=== PATIENT | female | born 1955 | race Caucasian/White ===

== ENCOUNTER 2021-09-24 06:09 | Inpatient (IN) | payer MEDICARE, OTHER ==
[~2021-09-24] VITALS: Ht 162.6 cm; Wt 51.3 kg
[2021-09-24] VITALS (46 sets, daily range): BP systolic 112–180; BP diastolic 53–117
[2021-09-24] MEDS ORDERED: CARDIZEM IV STA ×3 (06:26→08:04)
[2021-09-24] MEDS ORDERED: MAGNESIUM SULFATE 50 ML IV ONE ×2 (06:30→06:41)
--- NOTE | 2021-09-24 06:32 | PCM.EKG ---
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
[2021-09-24 06:40] LABS: BASOPHIL # 0.1 10^3/uL (0.0-0.1); BASOPHIL % 0.5 % (0.0-0.2); EOSINOPHIL % 0.3 % (0.0-5.0); LYMPHOCYTES # 2.72 10^3/uL1 (1.0-4.8); LYMPHOCYTES % 23.3 % (24.0-44.0); MEAN CORP HGB 33.8 pg (26-34); MONOCYTES # 1.1 10^3/uL (0.3-0.8); MONOCYTES % 9.2 % (5.0-12.0); NEUTROPHIL # 7.8 10^3/uL (1.8-7.7); NEUTROPHILS % 66.6 % (41.0-85.0); PLATELET COUNT 300 10^3/uL (150-400); RED CELL DISTRIBUTION WIDTH 12.3 % (11.5-14.5)
[2021-09-24] MEDS ORDERED: CARDIZEM ONE (06:42)
[2021-09-24] MEDS ORDERED: CARDIZEM IV ONE (06:42)
--- NOTE | 2021-09-24 06:42 | ER.PDOC ---
General Chief Complaint: Chest Pain-Cardiac Nature Stated Complaint: CHEST PAIN Time seen by MD: 06:25 Source: patient Exam Limitations: no limitations History of Present Illness Initial Comments This is a 66-year-old female with a past history of hypertension and peptic ulcer disease who was awakened from sleep about 4 hours ago by a sensation of palpitations, rapid heart rate, chest heaviness, dyspnea and fatigue. She denies a past history of similar episodes. She was also diaphoretic. There was no syncope. Heart rate on presentation was approximately 160. She took an aspirin prior to arrival. 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), hypertension, peptic ulcer disease Surgical History: appendectomy, breast augmentation, cholecystectomy, other (Partial gastrectomy for bleeding ulcer) Social History Smoking: non-smoker Alcohol Use: none Drug Use: none Constitutional: denies chills, denies fever EENTM: denies eye pain, denies ear pain Respiratory: denies cough; shortness of breath Cardiovascular: chest pain; denies edema, denies syncope Gastrointestinal: denies abdominal pain; nausea (Chronic, recurrent); denies vomiting Genitourinary: denies dysuria, denies hematuria Musculoskeletal: denies back pain, denies joint swelling Skin: denies lesions, denies rash Psychiatric/Neurological: denies emotional problems Endocrine: denies increased thrist, denies increased urine Hematologic/Lymphatic: denies blood clots, denies easy bleeding Physical Exam General Appearance: No Apparent Distress, Anxious HEENT: PERRL/EOMI, Normal ENT Inspection, Pharynx Normal Neck: Supple, Normal Inspection Respiratory: lungs clear, normal breath sounds, no respiratory distress, no accessory muscle use Cardiovascular: No Edema, No JVD, No Murmur, Tachycardia, Irregularly Irregular Gastrointestinal: Normal Bowel Sounds, Non Tender Extremities: Normal Range of Motion, Non-Tender, Normal Inspection, No Pedal Edema, No Calf Tenderness, Normal Capillary Refill Neurologic/Psychiatric: 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 (09/24/21 06:26) Xr Chest 1v (09/24/21 06:26) Ekg-Routine (09/24/21:26) Saline Lock (09/24/21 06:26) Troponin I High Sensitivity (09/24/21 06:26) Covid19 Antigen Antonina Venita (09/24/21 06:26) Diltiazem Hcl (Cardizem) (09/24/21:26) Magnesium 2 Gm/Water 50ml (Magnesium Sul (09/24/21 06:30) Magnesium (09/24/21 06:26) Vital Signs Date Time Temp Pulse Resp B/P (MAP) Pulse Ox O2 Delivery O2 Flow Rate FiO2 09/24/21 06:26 98.2 152 20 97 09/24/21 06:26 98.2 152 20 09/24/21 06:26 98.2 152 20 167/117 (134) 97 Room Air Progress Progress Signed out to Dr. Mendoza at 0700. Sign out accepted - Parmjit Miller and would like pt on a Cardizem Drip . Wiill admit at this time to Dr. Ji Jade EKG/XRAY/CT/US EKG: rhythm (A. fib, RVR at 161), nonspecific ST T wave chg ER DEPART Departure Time of Disposition: 07:56 Disposition: 09 ADMITTED INPATIENT Impression: Primary Impression: Atrial fibrillation with RVR Condition: Critical Referrals: MARIPOSA MEJIA MD (PCP) PRIMARY CARE PROVIDER Duration or Time Spent with Pa: 35 min Critical Care Note Total Time (mins): 35 Comments Given the critical condition in which the patient arrived, the patient was immediately assessed by myself and the nurse, and cardiac monitoring initiated due to the potential for rapid decompensation of the patient's clinical condition. During the course of the patient's, I spent a considerable amount of time at the bedside performing serial re-evaluations of the patient's hemodynamic and clinical status because of the recognized potential threat to life or limb in this condition. I then had a chance to review not only all of the available current laboratory and radiographic studies obtained today, Sequential vital signs were obtained. Critical Care time of 35 minutes was performed exclusive of billable procedures NAVIN PINA MD Sep 24, 2021 06:41 ABRAHAM BRIGGS DO Sep 24, 2021 07:28
[2021-09-24] MEDS ORDERED: NS 100ML 100 ML IV ONE (06:44)
--- NOTE | 2021-09-24 06:50 | DIREP ---
PROCEDURE:CHEST 1 VIEW COMPARISON:None. INDICATIONS:chest pain, A Fib FINDINGS: LUNGS/PLEURA:No significant pulmonary parenchymal abnormalities. No effusions. VASCULATURE:Normal. Unremarkable pulmonary vasculature. CARDIAC:Normal. No cardiac silhouette abnormality or cardiomegaly. MEDIASTINUM:Mildly calcified aorta. BONES:Mild degenerative changes. OTHER:Negative. CONCLUSION:No acute pulmonary process. Dictated by: Ravni Collado M.D. on 09/24/2021 at 06:49 AM
[2021-09-24 07:02] LABS: CARBON DIOXIDE 23.4 mmol/L (20.0-32)
[2021-09-24] MEDS ORDERED: CARDIZEM 125 MG in NS 100ML 100 ML IV SCH (07:30)
--- NOTE | 2021-09-24 07:40 | NUR ---
WALLY BRIGGS SPEAKING ON THE PHONE WITH HOSPITALIST, DR. LO REGARDING ADMISSION. ACCEPTED PATIENT FOR ADMITTING DX OF AFIB RVR.
--- NOTE | 2021-09-24 07:50 | NUR ---
ICU ICU #3 ASSIGNED.
--- NOTE | 2021-09-24 08:25 | NUR ---
ARRIVAL PT ARRIVED TO ICU3 AT THIS TIME. PT TRANSFERRED FROM STRETCHER TO BED INDEPENDENTLY. PT DENIES ANY CHEST PAIN AT THIS TIME. PT FLAKE OR SHRED ROLL OPERATOR SHOWS AFIB 132. CARDIZEM INFUSING AT 10MG/HR PER PROTOCOL FROM ED. MAGNESIUM 2GM INFUSING FROM ED WELL. REPORT RECEIVED FROM RENZO MATTHEWS AND ASSUMED CARE OF PT. PT HOOKED UP TO ALL MONITORS. PT EDUCATED TO ICU UNIT. STATES UNDERSTANDING.
--- NOTE | 2021-09-24 08:45 | NUR ---
PT ADMITTED TO ICU, NO RESP DISTRESS NOTED. HR 120, RR 20, SAT 96% ON RA. PT AWAKE AND ALERT, DENIES SOB. Addendum: 09/24/21 at 0903 by HATTIE LAIRD, DIE SINKER RT Amended: Links added.
[2021-09-24] MEDS ORDERED: OXYB5TAB10 PO (10:30)
[2021-09-24] MEDS ORDERED: LOSA50TA2 PO (10:30)
[2021-09-24] MEDS ORDERED: ONDA8TAB16 PO (10:30)
[2021-09-24] MEDS ORDERED: ZOLPIDEM (10:30)
[2021-09-24] MEDS ORDERED: ZOLP10TA PO (10:30)
--- NOTE | 2021-09-24 10:30 | NUR ---
DR. BRET QUEEN NOTIFIED OF CARDIAC CONVERSION. NO NEW ORDERS RECEIVED AT THIS TIME.
[2021-09-24] MEDS ORDERED: ROSU20TA2 PO (10:34)
[2021-09-24] MEDS ORDERED: LEVO100T PO (10:34)
[2021-09-24] MEDS ORDERED: PANT40TA3 PO (10:34)
--- NOTE | 2021-09-24 11:01 | PCM.HP ---
History of Present Illness Reason for Visit: Palpitations History of Present Illness 66-year-old female with a past history of hypertension, Hypothyroidism on levothyroxine,Esophageal cancer and peptic ulcer disease who was awakened from sleep about 4 hours Prior to arrival to the emergency room by a sensation of palpitations, rapid heart rate, chest heaviness, dyspnea and fatigue. She denies a past history of similar episodes. She was also diaphoretic. There was no syncope. Heart rate on presentation was approximately 160. She took an aspirin prior to arrival. Work-up in the emergency room patient was in A. fib with RVR. Was given diltiazem and placed on diltiazem drip. Online User Experience Strategist consulted.I checked a TSH which was low.Patient is being admitted to hospital for further management. Past Medical History Cardiac: HTN Heme/Onc: Cancer Endocrine: Hyperthyroidism Past Surgical History: No pertinent hx Past Social History Smoke: No Alcohol: none Review of Systems Constitutional: No: Fever, Chills Cardiovascular: Palpitations Gastrointestinal: No: Nausea, Vomiting Other Review of 14 systems negative except was mentioned above. Allergies: Coded Allergies: Sulfa (Sulfonamide Antibiotics) (Verified Allergy, Unknown, 09/24/21) metoclopramide (Verified Allergy, Unknown, 09/24/21) Scheduled Levothyroxine Sodium (Synthroid), 1 TAB PO DAILY, (Reported) Losartan Potassium (Cozaar), 1 TAB PO QD, (Reported) Ondansetron (Ondansetron Odt), 8 MG PO Q8HR, (Reported) Oxybutynin Chloride (Oxybutynin Chloride), 1 TAB PO TID, (Reported) Pantoprazole Sodium (Protonix), 1 TAB PO DAILY, (Reported) Rosuvastatin 20MG (Crestor 20MG), 1 TAB PO HS, (Reported) Zolpidem Tartrate (Ambien), 10 MG PO HS, (Reported) Miscellaneous Medications [Zolpidem], (Reported) Exam Vital Signs Vital Signs Date Time Temp Pulse Resp B/P (MAP) Pulse Ox O2 Delivery O2 Flow Rate FiO2 135 20 131/70 (90) 94 Room Air 97.9 General Appearance: Alert, Oriented X3 HEENT: Atraumatic, PERRLA Respiratory: Clear to auscultation, Normal air movement Cardiovascular: Other (Irregular irregular tachycardic) Abdominal: Normal bowel sounds, Soft, No tenderness Extremities: No clubbing, No cyanosis Skin: No lesions Neuro: Normal speech, Normal tone Psych/Mental Status: Mental status NL, Mood NL Assessment/Plan Assessment/Plan Assessment/Plan 66-year-old female with a past history of hypertension, Hypothyroidism on levothyroxine,Esophageal cancer and peptic ulcer disease who was awakened from sleep about 4 hours Prior to arrival to the emergency room by a sensation of palpitations, rapid heart rate, chest heaviness, dyspnea and fatigue. She denies a past history of similar episodes. She was also diaphoretic. There was no syncope. Heart rate on presentation was approximately 160. She took an aspirin prior to arrival. Work-up in the emergency room patient was in A. fib with RVR. Was given diltiaze m and placed on diltiazem drip. Online User Experience Strategist consulted.I checked a TSH which was low.Patient is being admitted to hospital for further management Plan Admit to ICU IV diltiazem drip TSH is low, will hold levothyroxine Replace electrolytes 2D echo Online User Experience Strategist consulted for evaluation and further management DVT prophylaxis as appropriate Reconcile home meds Expect length of stay more than 1 midnight Problems: (1) Atrial fibrillation with RVR Status: Acute ICD Code: I48.91 - Unspecified atrial fibrillation SNOMED: 383924289500225 (2) Hypomagnesemia ICD Code: E83.42 - Hypomagnesemia SNOMED: 475053659 (3) Hypertension ICD Code: I10 - Essential (primary) hypertension SNOMED: 90821089 (4) Thyroid disease ICD Code: E07.9 - Disorder of thyroid, unspecified SNOMED: 04066158 (5) History of esophageal cancer ICD Code: Z85.01 - Personal history of malignant neoplasm of esophagus SNOMED: 611467546 TAIWO DIAS MD Sep 24, 2021 11:01
[2021-09-24] MEDS ORDERED: CITA20TA6 PO (11:23)
[2021-09-24] MEDS ORDERED: SUCR1TAB34 PO (11:23)
[2021-09-24] MEDS ORDERED: CYCL10TA19 PO (11:23)
[2021-09-24] MEDS ORDERED: SERT100T PO (11:23)
[2021-09-24] MEDS ORDERED: PROM12.57 PO (11:23)
[2021-09-24] MEDS: COZAAR PO SCH ×2 (11:29→13:10)
[2021-09-24] MEDS: CARAFATE PO SCH ×2 (12:02→16:55)
[2021-09-24] MEDS: LOPRESSER PO SCH ×2 (12:03→16:55)
[2021-09-24] MEDS: KLOR-CON 10 PO SCH ×2 (13:10→13:15)
[2021-09-24] MEDS ORDERED: KCL 20MEQ/100ML 100 ML IV ONE ×2 (13:15→13:30)
[2021-09-24] MEDS ORDERED: ZOFRAN ONE (13:15)
--- NOTE | 2021-09-24 13:15 | NUR ---
VOMITING PT VOMITED AFTER ADMINISTRATIONS OF POTASSIUM AND LOSARTAN. DR MARAVILLA NOTIFIED. ORDERS RECEIVED TO GIVE KCL 20MEQ IV, ZOFRAN 4MG IVP, AND TRY LOSARTAN AGAIN AFTER ZOFRAN KICKS IN. RBTO.
[2021-09-24] MEDS: ZOFRAN IV PRN ×3 (13:18→21:00)
[2021-09-24] MEDS ORDERED: NS 250ML 250 ML ONE ×2 (13:24→15:22)
--- NOTE | 2021-09-24 13:48 | PCM.EKG ---
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
--- NOTE | 2021-09-24 13:57 | PCM.EKG ---
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
[2021-09-24] MEDS: DITROPAN PO SCH ×2 (14:19→20:33)
--- NOTE | 2021-09-24 14:20 | NUR ---
LIU GANNON D/C AT THIS TIME PER DR TAIWO RIVAS.
--- NOTE | 2021-09-24 18:34 | NUR ---
REPORT REPORT GIV[facility] TO [facility]IERREZ [facility]
[2021-09-24] MEDS ORDERED: CRESTOR PO ONE (20:27)
[2021-09-24] MEDS ORDERED: AMBIEN ONE (20:38)
[2021-09-24] MEDS ORDERED: CRESTOR PO SCH (21:00)
[2021-09-24] MEDS ORDERED: AMBIEN PO SCH (21:00)
[2021-09-25] VITALS (24 sets, daily range): BP systolic 102–150; BP diastolic 51–103
--- NOTE | 2021-09-25 03:19 | CNH ---
DATE OF CONSULTATION: 09/24/2021 DICTATOR NAME: FER QUEEN DO REASON FOR CONSULTATION: Atrial fibrillation with rapid ventricular response/acute decompensated heart failure. HISTORY OF PRESENT ILLNESS: This is a 66-year-old female who presented to the Emergency Room with progressively worsening shortness of breath, paroxysmal nocturnal dyspnea that woke her up from sleep last night, orthopnea and persistent palpitations. She became concerned and reported to the Emergency Room. Upon presentation, EKG showed atrial fibrillation with rapid ventricular response with heart rate in the 160s. She was also noted to have an elevated proBNP at 1335. High sensitive troponin is negative x3. A consultation was placed to Cardiology Service for evaluation for acute decompensated heart failure as well as atrial fibrillation with rapid ventricular response. She was started on diltiazem drip and has since chemically converted to normal sinus rhythm. PAST MEDICAL HISTORY: Significant for: 1. Hypertension. 2. Squamous cell carcinoma of the esophagus. 3. Peptic ulcer disease. 4. Hypothyroidism. 5. Hyperlipidemia. PAST SURGICAL HISTORY: 1. Appendectomy. 2. Breast augmentation. 3. Cholecystectomy. 4. Partial gastrectomy for bleeding ulcer. ALLERGIES: SHE IS ALLERGIC TO: 1. SULFONAMIDE ANTIBIOTICS. 2. CODEINE. 3. REGLAN. MEDICATIONS: She takes at home includes: 1. Levothyroxine. 2. Losartan 100 mg p.o. q. daily. 3. Zofran. 4. Oxybutynin. 5. Protonix. 6. Rosuvastatin 20 mg p.o. at bedtime. 7. Ambien. SOCIAL HISTORY: She denies tobacco use, denies illicit drug use, denies alcohol use. FAMILY HISTORY: She denies any family history of premature coronary artery disease or sudden cardiac . REVIEW OF SYSTEMS: As per HPI and as per previous records. All systems are reviewed and negative for interval change. PHYSICAL EXAMINATION: VITAL SIGNS: Blood pressure is 121/68, respiratory rate is 20, pulse is 74 beats per minute, pulse oximetry 97% on room air. GENERAL: She is in no apparent distress, alert and oriented x3. HEENT: Normocephalic, atraumatic. Extraocular muscles intact. Pupils equally round, reactive to light and accommodation. CARDIAC: S1, S2. No gallops, murmurs, rubs, or clicks. LUNGS: Clear to auscultation bilaterally. No wheezing, rhonchi or rales. ABDOMEN: Soft, nontender, nondistended. Positive bowel sounds in all 4 quadrants. EXTREMITIES: No cyanosis, no clubbing, no edema, +2 pedal pulses palpable bilaterally. NEUROLOGIC: No neurological deficits. Sensation is intact. IMPRESSION: 1. Acute decompensated heart failure secondary to unknown etiology at this time. 2. Elevated proBNP at 1335. 3. Atrial fibrillation with rapid ventricular response -- chemically converted to normal sinus rhythm. 4. CHADS2-VASc score of 4. 5. Hypertension. 6. Hyperlipidemia. 7. Hypothyroidism with low TSH and a suspicion for elevated thyroid hormones at this time. On levothyroxine at home. 9. Gastroesophageal reflux disease. 10. Insomnia. 11. Squamous cell carcinoma of the esophagus. 12. Peptic ulcer disease. RECOMMENDATIONS: This is a 66-year-old female who presented to the Emergency Room with paroxysmal nocturnal dyspnea that woke her up from sleep as well as progressively worsening shortness of breath that she has been experiencing for the last few days and orthopnea. Upon presentation to the ED, EKG showed atrial fibrillation with rapid ventricular response as well as elevated proBNP of 1335. A diagnosis of AFib with decompensated heart failure has been made. I suspect she has been in atrial fibrillation for the last few days that eventually put her in congestive heart failure. She chemically converted back to normal sinus rhythm on diltiazem drip. Diltiazem drip has been discontinued. I am going to start her on metoprolol tartrate 25 mg p.o. b.i.d. for rate control. Given her CHADS2-VASc score of 4, she will be started on Eliquis 5 mg p.o. b.i.d. She also has low TSH with a suspicion for elevated thyroid hormones. This may have also contributed to her atrial fibrillation episode. She has a history of hypothyroidism and takes levothyroxine. Levothyroxine has been discontinued at this time. She would benefit from outpatient full thyroid panel and possibly adjustment of her Levothyroxine medications. I will defer to the hospitalist for management of her thyroid disease. She will be started on Lasix 20 mg p.o. q. daily as well as potassium chloride 10 mEq p.o. q. daily. She takes losartan 50 mg p.o. q. daily at home. I would recommend to continue all cardiac medications. A prescription for oral anticoagulation as well as beta-grace therapy and antidiuretic therapy has been given to the patient together with a prescription for potassium chloride. At this point, she appears to be euvolemic. I would recommend sodium as well as fluid restriction, strict I's and O's as well as daily weights. Eventually, when she gets discharged, she would need to follow up with me in the clinic in the next 2 weeks. She would benefit from outpatient cardiac ischemic workup to rule out an ischemic substrate. At this time, echocardiography is not available at the hospital. She will be set up for echocardiography as well as cardiac stress test in the outpatient setting. She would also benefit from implantation of a CardioMEMS pulmonary artery sensor for remote monitoring of her pulmonary arterial pressures. This will be set up in the outpatient setting. No further cardiovascular workup is necessary at this time. She can be discharged home from my standpoint to follow up with me in the clinic in 2 weeks. I will sign off. Sunita COHEN D.O. DR: KA/CHA TID: [id number] RECEIPT: [id number]
[2021-09-25 05:25] LABS: BASOPHIL # 0.1 10^3/uL (0.0-0.1); BASOPHIL % 0.7 % (0.0-0.2); EOSINOPHIL # 0.1 10^3/uL (0.0-0.2); EOSINOPHIL % 1.3 % (0.0-5.0); LYMPHOCYTES # 2.21 10^3/uL1 (1.0-4.8); LYMPHOCYTES % 32.6 % (24.0-44.0); MEAN CORP HGB 33.4 pg (26-34); MONOCYTES % 14.9 % (5.0-12.0); NEUTROPHIL # 3.4 10^3/uL (1.8-7.7); NEUTROPHILS % 50.4 % (41.0-85.0); PLATELET COUNT 234 10^3/uL (150-400); RED CELL DISTRIBUTION WIDTH 12.3 % (11.5-14.5)
[2021-09-25 05:51] LABS: CARBON DIOXIDE 23.9 mmol/L (20.0-32)
[2021-09-25] MEDS: ZOFRAN IV PRN ×2 (06:34→11:46)
[2021-09-25] MEDS: CARAFATE PO SCH ×2 (07:48→11:46)
[2021-09-25] MEDS ORDERED: NORCO 5MG PO PRN (08:00)
[2021-09-25] MEDS ORDERED: PROTONIX PO SCH (09:00)
[2021-09-25] MEDS ORDERED: ELIQUIS PO SCH (09:00)
[2021-09-25] MEDS ORDERED: LASIX PO SCH (09:00)
[2021-09-25] MEDS ORDERED: KLOR-CON 10 PO SCH (09:00)
[2021-09-25] MEDS ORDERED: LOPRESSER PO SCH (09:00)
[2021-09-25] MEDS: CeleXA PO SCH ×2 (09:20→09:40)
[2021-09-25] MEDS: DITROPAN PO SCH (09:20)
[2021-09-25] MEDS: ZOLOFT PO SCH ×2 (09:20→09:40)
[2021-09-25] MEDS: COZAAR PO SCH (09:20)
[2021-09-25] MEDS ORDERED: FURO20TA3 PO (10:44)
[2021-09-25] MEDS ORDERED: METO25TA4 PO (10:44)
[2021-09-25] MEDS ORDERED: POTA-129 PO (10:44)
[2021-09-25] MEDS ORDERED: APIX5TAB PO (10:44)
--- NOTE | 2021-09-25 10:49 | PRM.PN ---
Subjective Subjective Date: Sep 25, 2021 Time: 10:48 Subjective No chest pain or SOB. VTE VTE Risk Total Score: >5 VTE Risk Score VTE Risk: Score 0-1 = Low Risk (Aggressive mobilization; early ambulation; no VTE prophylaxis required) Score 2: Moderate Risk (Intermittent/Pneumatic Compression Device OR Lovenox/Heparin/Coumadin) Score 3-4: High Risk (Intermittent/Pneumatic Compression Device AND Lovenox/Heparin/Coumadin) Score > or =5: Highest Risk (Intermittent/Pneumatic Compression Device AND Lovenox/Heparin/Coumadin) Antico:Hep/LMWH/Coum/Xarelto: Yes Review of Systems Constitutional: No: Fever, Chills Cardiovascular: Palpitations Gastrointestinal: No: Nausea, Vomiting Allergies: Coded Allergies: Sulfa (Sulfonamide Antibiotics) (Verified Allergy, Unknown, 09/24/21) metoclopramide (Verified Allergy, Unknown, 09/24/21) codeine (Verified Adverse Reaction, Unknown, ITCHING, 09/24/21) Scheduled Apixaban (Eliquis), 5 MG PO BID Citalopram Hydrobromide (Citalopram Hbr), 1 TAB PO DAILY, (Reported) Cyclobenzaprine Hcl (Flexeril), 1 TAB PO BID, (Reported) Furosemide (Furosemide), 20 MG PO DAILY Levothyroxine Sodium (Synthroid), 1 TAB PO DAILY, (Reported) Losartan Potassium (Cozaar), 1 TAB PO QD, (Reported) Metoprolol Tartrate 25MG (Lopresser 25MG), 25 MG PO BID Ondansetron (Ondansetron Odt), 8 MG PO Q8HR, (Reported) Oxybutynin Chloride (Oxybutynin Chloride), 1 TAB PO TID, (Reported) Pantoprazole Sodium (Protonix), 1 TAB PO DAILY, (Reported) Potassium Chloride (Klor-Con 10), 10 MEQ PO DAILY Rosuvastatin 20MG (Crestor 20MG), 1 TAB PO HS, (Reported) Sertraline Hcl (Zoloft), 1 TAB PO DAILY, (Reported) Sucralfate (Carafate), 1 TAB PO TIDAC, (Reported) Zolpidem Tartrate (Ambien), 10 MG PO HS, (Reported) Scheduled PRN Promethazine Hcl (Promethazine Hcl), 1 TAB PO Q6 PRN for N/V, (Reported) Miscellaneous Medications [Zolpidem], (Reported) Objective Vitals and I/O Vital Sign - Last 24 Hours 09/24/21 09/24/21 09/24/21 09/24/21 11:00 11:15 11:17 11:30 Pulse 83 107 120 84 Resp 20 22 20 18 B/P (MAP) 141/66 (91) 149/82 (104) Pulse Ox 94 95 96 95 09/24/21 09/24/21 09/24/21 09/24/21 11:45 12:00 12:03 12:15 Temp 97.8 Pulse 87 81 86 97 Resp 22 B/P (MAP) 149/84 (105) 168/88 (114) 168/88 Pulse Ox 96 95 96 09/24/21 09/24/21 09/24/21 09/24/21 12:17 12:30 12:32 12:36 Pulse 106 83 80 90 Resp 18 23 19 18 B/P (MAP) 166/101 (122) Pulse Ox 95 94 95 96 09/24/21 09/24/21 09/24/21 09/24/21 12:45 12:49 13:09 13:10 Pulse 88 75 Resp 20 29 B/P (MAP) 165/101 (122) 165/103 (123) 165/103 Pulse Ox 96 94 O2 Delivery Room Air 09/24/21 09/24/21 09/24/21 09/24/21 13:15 13:30 13:45 14:00 Pulse 75 74 67 66 Resp 20 22 Pulse Ox 96 95 95 94 09/24/21 09/24/21 09/24/21 09/24/21 14:15 14:20 14:26 14:30 Pulse 67 67 70 69 Resp 24 17 28 B/P (MAP) 162/103 (122) Pulse Ox 95 94 95 09/24/21 09/24/21 09/24/21 09/24/21 14:45 14:47 15:00 15:16 Pulse 73 72 65 74 Resp 20 22 20 26 B/P (MAP) 150/98 (115) 127/69 (88) 147/67 (93) Pulse Ox 94 95 96 09/24/21 09/24/21 09/24/2126/22 15:30 15:45 16:01 16:17 Pulse 70 70 74 77 Resp 25 25 28 26 B/P (MAP) 148/82 (104) 156/81 (106) 127/83 (98) Pulse Ox 93 96 97 92 09/24/21 09/24/21 09/24/21 09/24/21 16:27 16:30 16:45 16:46 Pulse 71 70 85 Resp 32 32 27 B/P (MAP) 140/89 (106) Pulse Ox 97 97 95 O2 Delivery Room Air 09/24/21 09/24/21 09/24/21 09/24/21 16:55 17:00 17:15 17:26 Temp 97.8 Pulse 72 78 77 78 Resp 45 65 90 B/P (MAP) 127/69 172/116 (134) Pulse Ox 97 96 95 09/24/21 09/24/21 09/24/21 09/24/21 18:30 18:31 18:45 19:00 Pulse 71 67 57 67 Resp 25 20 16 18 B/P (MAP) 153/109 (124) 157/78 (104) 171/68 (102) Pulse Ox 97 96 95 95 09/24/21 09/24/21 09/24/21 09/24/21 19:15 19:30 19:45 20:00 Pulse 66 64 55 Resp 11 19 20 B/P (MAP) 142/86 (104) 160/82 (108) 150/82 (104) Pulse Ox 96 97 95 O2 Delivery Room Air 09/24/21 09/24/21 09/24/21 09/24/21 20:00 20:15 20:16 20:30 Pulse 71 68 71 68 Resp 19 84 33 22 B/P (MAP) 148/94 (112) 150/83 (105) 127/53 (77) Pulse Ox 95 97 90 97 09/24/21 09/24/21 09/24/21 09/24/21 20:45 21:00 21:01 21:15 Pulse 90 79 69 73 Resp 39 77 35 48 B/P (MAP) 148/94 (112) Pulse Ox 96 95 96 96 09/24/21 09/24/21 09/24/21 09/24/21 21:30 21:45 22:00 22:15 Pulse 72 72 68 74 Resp 22 20 22 20 B/P (MAP) 167/80 (109) 140/82 (101) Pulse Ox 97 98 94 09/24/21 09/24/21 09/24/21 09/24/21 22:30 22:45 23:00 23:15 Pulse 66 74 65 76 Resp 23 20 22 20 B/P (MAP) 121/68 (85) 121/66 (84) Pulse Ox 95 97 94 09/24/21 09/24/21 09/25/21 09/25/21 23:30 23:45 00:00 00:00 Pulse 71 69 81 Resp 18 19 20 B/P (MAP) 112/72 (85) 149/91 (110) Pulse Ox 94 96 94 O2 Delivery Room Air 09/25/21 09/25/21 09/25/21 09/25/21 00:15 00:30 00:45 01:00 Pulse 95 64 65 71 Resp 18 14 21 19 B/P (MAP) 134/76 (95) 122/55 (77) Pulse Ox 97 96 97 94 09/25/21 09/25/21 09/25/21 09/25/21 01:15 01:30 01:45 02:00 Pulse 76 66 58 61 Resp 10 32 17 17 B/P (MAP) 123/51 (75) 108/65 (79) Pulse Ox 96 94 09/25/21 09/25/21 09/25/21 09/25/21 02:15 02:30 02:45 03:00 Pulse 67 66 66 62 Resp 20 22 20 20 B/P (MAP) 113/71 (85) 102/58 (73) Pulse Ox 95 94 09/25/21 09/25/21 09/25/21 09/25/21 03:15 03:30 03:45 04:00 Pulse 63 67 60 Resp 16 20 21 B/P (MAP) 125/65 (85) Pulse Ox 94 93 95 O2 Delivery Room Air 09/25/21 09/25/21 09/25/21 09/25/21 04:00 04:01 04:15 04:30 Pulse 72 66 69 60 Resp 19 21 14 18 B/P (MAP) 126/68 (87) 118/66 (83) Pulse Ox 94 95 96 09/25/21 09/25/21 09/25/21 09/25/21 04:45 05:00 05:15 05:30 Pulse 60 61 75 70 Resp 21 27 15 18 B/P (MAP) 108/57 (74) 120/74 (89) Pulse Ox 95 95 97 95 09/25/21 09/25/21 09/25/21 09/25/21 05:45 06:00 06:15 06:30 Pulse 65 63 68 63 Resp 16 21 B/P (MAP) 112/68 (83) 103/61 (75) Pulse Ox 97 94 96 95 09/25/21 09/25/21 09/25/21 09/25/21 06:45 07:00 07:15 07:30 Pulse 96 71 72 60 Resp 21 37 24 21 B/P (MAP) 129/68 (88) 123/72 (89) Pulse Ox 95 95 93 95 09/25/21 09/25/21 09/25/21 09/25/21 07:45 08:00 08:15 08:30 Pulse 65 87 64 93 Resp B/P (MAP) 128/78 (95) 134/100 (111) Pulse Ox 93 95 97 94 09/25/21 09/25/21 09/25/21 09/25/21 08:45 08:55 09:19 09:20 Temp 97.7 Pulse 76 Resp 21 B/P (MAP) 126/69 126/69 Pulse Ox 97 O2 Delivery Room Air 09/25/21 09:20 Pulse 65 B/P (MAP) 126/69 Intake and Output 09/25/21 07:00 Intake Total 2653 ml Output Total 200 ml Balance 2453 ml General: Alert, Oriented X3 HEENT: Atraumatic, PERRLA Lungs: Clear to auscultation, Normal air movement Heart: Other (Irregular irregular tachycardic) Abdomen: Normal bowel sounds, Soft, No tenderness Extremities: No clubbing, No cyanosis Neuro: Normal speech, Normal tone Psych/Mental Status: Mental status NL, Mood NL All Results(Lab/Rad) Laboratory Tests Test 09/24/21 12:55 09/25/21 05:10 Troponin I High Sensitivity 31 ng/L White Blood Count 6.8 10^3/uL Red Blood Count 4.25 10^6/uL Hemoglobin 14.2 g/dL Hematocrit 42.6 % Mean Corpuscular Volume 100.2 fL Mean Corpuscular Hemoglobin 33.4 pg Mean Corpuscular Hemoglobin Concent 33.3 g/dL Red Cell Distribution Width 12.3 % Platelet Count 234 10^3/uL Mean Platelet Volume 10.2 fL Neutrophils (%) (Auto) 50.4 % Lymphocytes (%) (Auto) 32.6 % Monocytes (%) (Auto) 14.9 % Neutrophils # (Auto) 3.4 10^3/uL Lymphocytes # (Auto) 2.21 10^3/uL1 Monocytes # (Auto) 1.0 10^3/uL Absolute Immature Granulocyte (auto 0.01 10^3 u/L Absolute Eosinophils (auto) 0.1 10^3/uL Immature Granulocytes % 0.10 % Eosinophils % 1.3 % Basophils % 0.7 % Basophils # 0.1 10^3/uL Sodium Level 139 mmol/L Potassium Level 3.6 mmol/L Chloride Level 104.0 mmol/L Carbon Dioxide Level 23.9 mmol/L Anion Gap 14.7 Blood Urea Nitrogen 6 mg/dL Creatinine 0.66 mg/dL Estimated GFR () 108.8 Est GFR (CKD-EPI)(Non-Afr Omani) 89.9 BUN/Creatinine Ratio 9.0 Glucose Level 105 mg/dL Calcium Level 9.0 mg/dL Total Bilirubin 0.9 mg/dL Aspartate Amino Transf (AST/SGOT) 74 U/L Alanine Aminotransferase (ALT/SGPT) 41 U/L Alkaline Phosphatase 154 U/L Total Protein 6.9 g/dL Albumin 3.4 g/dL Globulin 3.5 Albumin/Globulin Ratio 0.971 Current Medications Medications (Trade) Dose Ordered Sig/Juan Route PRN Reason Start Time Stop Time Status Last Admin Dose Admin Diltiazem HCl (Cardizem) 15 mg STAT STAT IV 09/24/21 06:26 09/24/21 06:31 DC 09/24/21 06:45 Magnesium Sulfate 50 ml @ 50 mls/hr OT ONCE IV 09/24/21 06:30 09/24/21 07:29 DC 09/24/21 06:50 Magnesium Sulfate 50 ml @ ud STK-MED ONCE IV 09/24/21 06:41 09/24/21 06:41 DC Diltiazem HCl (Cardizem) 50 mg STK-MED ONCE IV 09/24/21 06:42 09/24/21 06:42 DC Diltiazem HCl (Cardizem) 125 mg STK-MED ONCE .ROUTE 09/24/21 06:42 09/24/21 06:42 DC Sodium Chloride 100 ml @ ud STK-MED ONCE IV 09/24/21 06:44 09/24/21 06:44 DC Diltiazem HCl (Cardizem) 20 mg STAT STAT IV 09/24/21 06:57 09/24/21 06:58 DC 09/24/21 06:55 Diltiazem HCl 125 mg/Sodium Chloride 125 ml @ 5 mls/hr IV 09/24/21 07:30 09/24/21 23:19 DC 09/24/21 07:37 Diltiazem HCl (Cardizem) 15 mg STAT STAT IV 09/24/21 08:04 09/24/21 08:06 DC 09/24/21 08:08 Potassium Chloride (Klor-Con 10) 20 meq STAT PO 09/24/21 09:00 09/25/21 00:34 DC Metoprolol Tartrate (Lopresser) 25 mg Q6 PO 09/24/21 12:00 09/24/21 23:14 DC 09/24/21 16:55 Losartan Potassium (Cozaar) 50 mg DAILY PO 09/24/21 11:00 10/24/21 10:59 09/25/21 09:20 Pantoprazole Sodium (Protonix) 40 mg DAILY PO 09/25/21 09:00 10/25/21 08:59 09/25/21 09:20 Rosuvastatin Calcium (Crestor) 20 mg HS PO 09/24/21 21:00 10/24/21 20:59 09/24/21 20:32 Zolpidem Tartrate (Ambien) 10 mg HS PO 09/24/21 21:00 10/24/21 20:59 09/24/21 20:40 Citalopram Hydrobromide (CeleXA) 20 mg DAILY PO 09/25/21 09:00 10/25/21 08:59 Oxybutynin Chloride (Ditropan) 5 mg TID PO 09/24/21 15:00 10/24/21 14:59 09/25/21 09:20 Sucralfate (Carafate) 1 gm TIDAC PO 09/24/21 11:30 10/24/21 11:29 09/25/21 07:48 Sertraline HCl (Zoloft) 100 mg DAILY PO 09/25/21 09:00 10/25/21 08:59 Ondansetron HCl (Zofran) 4 mg STK-MED ONCE .ROUTE 09/24/21 13:15 09/24/21 13:15 DC Potassium Chloride 100 ml @ ud STK-MED ONCE IV 09/24/21 13:15 09/24/21 13:15 DC Ondansetron HCl (Zofran) 4 mg Q4H PRN IV NAUSEA / VOMITING 09/24/21 13:30 10/24/21 13:29 09/25/21 06:34 Potassium Chloride 100 ml @ 50 mls/hr OT ONCE IV 09/24/21 13:30 09/24/21 15:30 DC 09/24/21 13:18 Sodium Chloride 250 ml @ ud STK-MED ONCE .ROUTE 09/24/21 13:24 09/24/21 13:25 DC Sodium Chloride 250 ml @ ud STK-MED ONCE .ROUTE 09/24/21 15:22 09/24/21 15:23 DC Rosuvastatin Calcium (Crestor) 10 mg STK-MED ONCE PO 09/24/21 20:27 09/24/21 20:28 DC Zolpidem Tartrate (Ambien) 5 mg STK-MED ONCE .ROUTE 09/24/21 20:38 09/24/21 20:38 DC Metoprolol Tartrate (Lopresser) 25 mg BID PO 09/25/21 09:00 10/25/21 08:59 09/25/21 09:20 Furosemide (Lasix) 20 mg DAILY PO 09/25/21 09:00 10/25/21 08:59 09/25/21 09:19 Potassium Chloride (Klor-Con 10) 10 meq DAILY PO 09/25/21 09:00 10/25/21 08:59 09/25/21 09:21 Acetaminophen/ Hydrocodone Bitart ([place] 5mg) 1 ea Q4HR PRN PO PAIN 4 - 6 09/25/21 08:00 10/25/21 07:59 09/25/21 07:49 Course Sepsis Screening Results: Posi: NEGATIVE Sepsis Qualifier/Stage: NO DEFINITE RISK DATE SEEN BY PHYSICIAN: Sep 25, 2021 Duration or Total Time Spent w: 35 min Vitals & review Data Vital Sign - Last 24 Hours 09/24/21 09/24/21 09/24/21 09/24/21 11:00 11:15 11:17 11:30 Pulse 83 107 120 84 Resp 20 22 20 18 B/P (MAP) 141/66 (91) 149/82 (104) Pulse Ox 94 95 96 95 09/24/21 09/24/21 09/24/21 09/24/21 11:45 12:00 12:03 12:15 Temp 97.8 Pulse 87 81 86 97 Resp 16 22 B/P (MAP) 149/84 (105) 168/88 (114) 168/88 Pulse Ox 96 95 96 09/24/21 09/24/21 09/24/21 09/24/21 12:17 12:30 12:32 12:36 Pulse 106 83 80 90 Resp 18 23 19 18 B/P (MAP) 166/101 (122) Pulse Ox 95 94 95 96 09/24/21 09/24/21 09/24/21 09/24/21 12:45 12:49 13:09 13:10 Pulse 88 75 Resp 20 29 B/P (MAP) 165/101 (122) 165/103 (123) 165/103 Pulse Ox 96 94 O2 Delivery Room Air 09/24/21 09/24/21 09/24/21 09/24/21 13:15 13:30 13:45 14:00 Pulse 75 74 67 66 Resp 20 22 Pulse Ox 96 95 95 94 09/24/21 09/24/21 09/24/21 09/24/21 14:15 14:20 14:26 14:30 Pulse 67 67 70 69 Resp 24 17 28 B/P (MAP) 162/103 (122) Pulse Ox 95 94 95 09/24/21 09/24/21 09/24/21 09/24/21 14:45 14:47 15:00 15:16 Pulse 73 72 65 74 Resp 20 22 20 26 B/P (MAP) 150/98 (115) 127/69 (88) 147/67 (93) Pulse Ox 94 95 96 3/26/22 3/26/22 3/26/22 3/26/22 15:30 15:45 16:01 16:17 Pulse 70 70 74 77 Resp 25 25 28 26 B/P (MAP) 148/82 (104) 156/81 (106) 127/83 (98) Pulse Ox 93 96 97 92 09/24/21 09/24/21 09/24/21 09/24/21 16:27 16:30 16:45 16:46 Pulse 71 70 85 Resp 32 32 27 B/P (MAP) 140/89 (106) Pulse Ox 97 97 95 O2 Delivery Room Air 09/24/21 09/24/21 09/24/21 09/24/21 16:55 17:00 17:15 17:26 Temp 97.8 Pulse 72 78 77 78 Resp 45 65 90 B/P (MAP) 127/69 172/116 (134) Pulse Ox 97 96 95 09/24/21 09/24/21 09/24/21 09/24/21 18:30 18:31 18:45 19:00 Pulse 71 67 57 67 Resp 25 20 16 18 B/P (MAP) 153/109 (124) 157/78 (104) 171/68 (102) Pulse Ox 97 96 95 95 09/24/21 09/24/21 09/24/21 09/24/21 19:15 19:30 19:45 20:00 Pulse 66 64 55 Resp 11 19 20 B/P (MAP) 142/86 (104) 160/82 (108) 150/82 (104) Pulse Ox 96 97 95 O2 Delivery Room Air 09/24/21 09/24/21 09/24/21 09/24/21 20:00 20:15 20:16 20:30 Pulse 71 68 71 68 Resp 19 84 33 22 B/P (MAP) 148/94 (112) 150/83 (105) 127/53 (77) Pulse Ox 95 97 90 97 09/24/21 09/24/21 09/24/21 09/24/21 20:45 21:00 21:01 21:15 Pulse 90 79 69 73 Resp 39 77 35 48 B/P (MAP) 148/94 (112) Pulse Ox 96 95 96 96 09/24/21 09/24/21 09/24/21 09/24/21 21:30 21:45 22:00 22:15 Pulse 72 72 68 74 Resp 22 20 22 20 B/P (MAP) 167/80 (109) 140/82 (101) Pulse Ox 97 98 94 09/24/21 09/24/21 09/24/21 09/24/21 22:30 22:45 23:00 23:15 Pulse 66 74 65 76 Resp 23 20 22 20 B/P (MAP) 121/68 (85) 121/66 (84) Pulse Ox 95 97 94 09/24/21 09/24/21 09/25/21 09/25/21 23:30 23:45 00:00 00:00 Pulse 71 69 81 Resp 18 19 20 B/P (MAP) 112/72 (85) 149/91 (110) Pulse Ox 94 96 94 O2 Delivery Room Air 09/25/21 09/25/21 09/25/21 09/25/21 00:15 00:30 00:45 01:00 Pulse 95 64 65 71 Resp 18 14 21 19 B/P (MAP) 134/76 (95) 122/55 (77) Pulse Ox 97 96 97 94 09/25/21 09/25/21 09/25/21 09/25/21 01:15 01:30 01:45 02:00 Pulse 76 66 58 61 Resp 10 32 17 17 B/P (MAP) 123/51 (75) 108/65 (79) Pulse Ox 96 94 09/25/21 09/25/21 09/25/21 09/25/21 02:15 02:30 02:45 03:00 Pulse 67 66 66 62 Resp 20 22 20 20 B/P (MAP) 113/71 (85) 102/58 (73) Pulse Ox 95 94 09/25/21 09/25/21 09/25/21 09/25/21 03:15 03:30 03:45 04:00 Pulse 63 67 60 Resp 16 20 21 B/P (MAP) 125/65 (85) Pulse Ox 94 93 95 O2 Delivery Room Air 09/25/21 09/25/21 09/25/21 09/25/21 04:00 04:01 04:15 04:30 Pulse 72 66 69 60 Resp 19 21 14 18 B/P (MAP) 126/68 (87) 118/66 (83) Pulse Ox 94 95 96 09/25/21 09/25/21 09/25/21 09/25/21 04:45 05:00 05:15 05:30 Pulse 60 61 75 70 Resp 21 27 15 18 B/P (MAP) 108/57 (74) 120/74 (89) Pulse Ox 95 95 97 95 09/25/21 09/25/21 09/25/21 09/25/21 05:45 06:00 06:15 06:30 Pulse 65 63 68 63 Resp 16 21 B/P (MAP) 112/68 (83) 103/61 (75) Pulse Ox 97 94 96 95 09/25/21 09/25/21 09/25/21 09/25/21 06:45 07:00 07:15 07:30 Pulse 96 71 72 60 Resp 37 24 21 B/P (MAP) 129/68 (88) 123/72 (89) Pulse Ox 95 95 93 95 09/25/21 09/25/21 09/25/21 09/25/21 07:45 08:00 08:15 08:30 Pulse 65 87 64 93 Resp 26 B/P (MAP) 128/78 (95) 134/100 (111) Pulse Ox 93 95 97 94 09/25/21 09/25/21 09/25/21 09/25/21 08:45 08:55 09:19 09:20 Temp 97.7 Pulse 76 Resp 21 B/P (MAP) 126/69 126/69 Pulse Ox 97 O2 Delivery Room Air 09/25/21 09:20 Pulse 65 B/P (MAP) 126/69 Intake and Output 09/25/21 07:00 Intake Total 2653 ml Output Total 200 ml Balance 2453 ml Laboratory Tests Test 09/24/21 06:30 09/24/21 07:20 09/24/21 10:30 09/24/21 12:55 White Blood Count 11.7 10^3/uL Red Blood Count 4.73 10^6/uL Hemoglobin 16.0 g/dL Hematocrit 47.2 % Mean Corpuscular Volume 99.8 fL Mean Corpuscular Hemoglobin 33.8 pg Mean Corpuscular Hemoglobin Concent 33.9 g/dL Red Cell Distribution Width 12.3 % Platelet Count 300 10^3/uL Mean Platelet Volume 10.1 fL Neutrophils (%) (Auto) 66.6 % Lymphocytes (%) (Auto) 23.3 % Monocytes (%) (Auto) 9.2 % Neutrophils # (Auto) 7.8 10^3/uL Lymphocytes # (Auto) 2.72 10^3/uL1 Monocytes # (Auto) 1.1 10^3/uL Absolute Immature Granulocyte (auto 0.01 10^3 u/L Absolute Eosinophils (auto) 0.0 10^3/uL Immature Granulocytes % 0.10 % Eosinophils % 0.3 % Basophils % 0.5 % Basophils # 0.1 10^3/uL Prothrombin Time 9.6 SEC Prothrombin Time INR (Non-Therap) 0.9 Activated Partial Thromboplast Time 22.9 SEC Sodium Level 138 mmol/L Potassium Level 3.6 mmol/L Chloride Level 100.0 mmol/L Carbon Dioxide Level 23.4 mmol/L Anion Gap 18.2 Blood Urea Nitrogen 9 mg/dL Creatinine 0.59 mg/dL Estimated GFR () 123.8 Est GFR (CKD-EPI)(Non-Afr Omani) 102.3 BUN/Creatinine Ratio 15.0 Glucose Level 124 mg/dL Calcium Level 9.7 mg/dL Magnesium Level 1.7 mg/dL Total Bilirubin 0.8 mg/dL Aspartate Amino Transf (AST/SGOT) 90 U/L Alanine Aminotransferase (ALT/SGPT) 51 U/L Alkaline Phosphatase 181 U/L Troponin I High Sensitivity 31 ng/L 39 ng/L 31 ng/L Pro-B-Type Natriuretic Peptide 1335 pg/mL Total Protein 8.0 g/dL Albumin 4.0 g/dL Globulin 4.0 Albumin/Globulin Ratio 1.000 Thyroid Stimulating Hormone (TSH) 0.035 mIU/mL SARS-CoV-2 Antigen (Rapid) NEGATIVE Test 09/25/21 05:10 White Blood Count 6.8 10^3/uL Red Blood Count 4.25 10^6/uL Hemoglobin 14.2 g/dL Hematocrit 42.6 % Mean Corpuscular Volume 100.2 fL Mean Corpuscular Hemoglobin 33.4 pg Mean Corpuscular Hemoglobin Concent 33.3 g/dL Red Cell Distribution Width 12.3 % Platelet Count 234 10^3/uL Mean Platelet Volume 10.2 fL Neutrophils (%) (Auto) 50.4 % Lymphocytes (%) (Auto) 32.6 % Monocytes (%) (Auto) 14.9 % Neutrophils # (Auto) 3.4 10^3/uL Lymphocytes # (Auto) 2.21 10^3/uL1 Monocytes # (Auto) 1.0 10^3/uL Absolute Immature Granulocyte (auto 0.01 10^3 u/L Absolute Eosinophils (auto) 0.1 10^3/uL Immature Granulocytes % 0.10 % Eosinophils % 1.3 % Basophils % 0.7 % Basophils # 0.1 10^3/uL Sodium Level 139 mmol/L Potassium Level 3.6 mmol/L Chloride Level 104.0 mmol/L Carbon Dioxide Level 23.9 mmol/L Anion Gap 14.7 Blood Urea Nitrogen 6 mg/dL Creatinine 0.66 mg/dL Estimated GFR () 108.8 Est GFR (CKD-EPI)(Non-Afr [place]mani) 89.9 BUN/Creatinine Ratio 9.0 Glucose Level 105 mg/dL Calcium Level 9.0 mg/dL Total Bilirubin 0.9 mg/dL Aspartate Amino Transf (AST/SGOT) 74 U/L Alanine Aminotransferase (ALT/SGPT) 41 U/L Alkaline Phosphatase 154 U/L Total Protein 6.9 g/dL Albumin 3.4 g/dL Globulin 3.5 Albumin/Globulin Ratio 0.971 Current Medications Medications (Trade) Dose Ordered Sig/Juan PRN Reason Start Time Stop Time Status Last Admin Acetaminophen/ Hydrocodone Bitart ([place] 5mg) 1 ea Q4HR PRN PAIN 4 - 6 09/25/21 08:00 10/25/21 07:59 09/25/21 07:49 Citalopram Hydrobromide (CeleXA) 20 mg DAILY 09/25/21 09:00 10/25/21 08:59 Furosemide (Lasix) 20 mg DAILY 09/25/21 09:00 10/25/21 08:59 09/25/21 09:19 Losartan Potassium (Cozaar) 50 mg DAILY 09/24/21 11:00 10/24/21 10:59 09/25/21 09:20 Metoprolol Tartrate (Lopresser) 25 mg BID 09/25/21 09:00 10/25/21 08:59 09/25/21 09:20 Ondansetron HCl (Zofran) 4 mg Q4H PRN NAUSEA / VOMITING 09/24/21 13:30 10/24/21 13:29 09/25/21 06:34 Oxybutynin Chloride (Ditropan) 5 mg TID 09/24/21 15:00 10/24/21 14:59 09/25/21 09:20 Pantoprazole Sodium (Protonix) 40 mg DAILY 09/25/21 09:00 10/25/21 08:59 09/25/21 09:20 Potassium Chloride (Klor-Con 10) 10 meq DAILY 09/25/21 09:00 10/25/21 08:59 09/25/21 09:21 Rosuvastatin Calcium (Crestor) 20 mg HS 09/24/21 21:00 10/24/21 20:59 09/24/21 20:32 Sertraline HCl (Zoloft) 100 mg DAILY 09/25/21 09:00 10/25/21 08:59 Sucralfate (Carafate) 1 gm TIDAC 09/24/21 11:30 10/24/21 11:29 09/25/21 07:48 Zolpidem Tartrate (Ambien) 10 mg HS 09/24/21 21:00 10/24/21 20:59 09/24/21 20:40 LEVEL 1 SEPSIS INFECTION CRITE: None/Not assessed LEVEL 2-SIRS (LIST ALL THAT AP: None/Not assessed O2 Sat by Pulse Oximetry: 97 Assessment/Plan Assessment/Plan Assessment/Plan 66-year-old female with a past history of hypertension, Hypothyroidism on levothyroxine,Esophageal cancer and peptic ulcer disease who was awakened from sleep about 4 hours Prior to arrival to the emergency room by a sensation of palpitations, rapid heart rate, chest heaviness, dyspnea and fatigue. She denies a past history of similar episodes. She was also diaphoretic. There was no syncope. Heart rate on presentation was approximately 160. She took an aspirin prior to arrival. Work-up in the emergency room patient was in A. fib with RVR. Was given diltiazem and placed on diltiazem drip. Car Repairer consulted.I checked a TSH which was low.Patient is being admitted to hospital for further management Afib with RVR, converted to sinus Hypothyroidism GERD Plan Converted to sinus, off diltiazem drip Continue Metoprolol PO. Started on Apixaban for AC TSH is low, Stop levothyroxine. TSH f/u as an outpatient. 2D echo as an out patient. 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 DC home and follow up with PCP. SOBIA MARAVILLA MD Sep 25, 2021 10:49
--- NOTE | 2021-09-25 12:25 | NUR ---
DISCHARGE PT DISCHARGED FROM ICU3 AT THIS TIME. PT EDUCATED ON AFIB, NEW PRESCRIPTIONS ALONG WITH SIDE EFFECTS, FOLLOW UP APPOINTMENT, CARDIAC DIET, ACTIVITY LEVEL, AND WHEN TO RETURN TO ED FOR. PT PRESENT FOR EDUCATION AND HANDOUT MATERIAL GIVEN. PT DENIES ANY QUESTIONS. PT AMBULATED PER REQUEST TO PRIVATE VEHICLE IN STABLE CONDITION
== END 2021-09-25 12:25 | disposition home or self-care (01) | DRG 310 ==
LOC: ER 06:09 → OBSVTOIN 07:36 → ICU 07:36 → INTOOBSV 07:36 → UNDOADMOB 07:36 → UNDODISOB 09-25 12:25
PROVIDERS: ADMIT Internal Medicine; ATTEND Internal Medicine
DX: I48.91 Unspecified atrial fibrillation (principal); I11.0 Hypertensive heart disease with heart failure; E03.9 Hypothyroidism, unspecified; I50.9 Heart failure, unspecified; E78.5 Hyperlipidemia, unspecified; E83.42 Hypomagnesemia; E05.90 Thyrotoxicosis, unspecified without thyrotoxic crisis or storm; Z20.822 Contact with and (suspected) exposure to COVID-19; G47.00 Insomnia, unspecified; K21.9 Gastro-esophageal reflux disease without esophagitis; K27.9 Peptic ulcer, site unspecified, unspecified as acute or chronic, without hemorrhage or perforation; Z85.01 Personal history of malignant neoplasm of esophagus; Z87.11 Personal history of peptic ulcer disease; Z90.49 Acquired absence of other specified parts of digestive tract; Z90.3 Acquired absence of stomach [part of]; Z88.2 Allergy status to sulfonamides; Z88.5 Allergy status to narcotic agent; Z88.8 Allergy status to other drugs, medicaments and biological substances
CPT/HCPCS: 36415; 71045; 80053; 83735; 83880; 84443; 84484; 85025; 85610; 85730; 87426; 93005; 99291; G0378; J2405; J3475; J3490; J7050; J3480

== ENCOUNTER 2021-10-05 15:38 | Emergency (ER) | payer MEDICARE ==
[~2021-10-05] VITALS: Ht 162.6 cm; Wt 59.0 kg
[2021-10-05 15:38] VITALS: BP 103/49
[~2021-10-05 15:38] MED LIST: APIX5TAB PO; CITA20TA6 PO; CYCL10TA19 PO; FURO20TA3 PO; LEVO100T PO; LOSA50TA2 PO; METO25TA4 PO; ONDA8TAB16 PO; OXYB5TAB10 PO; PANT40TA3 PO; POTA-129 PO; PROM12.57 PO; ROSU20TA2 PO; SERT100T PO; SUCR1TAB34 PO; ZOLP10TA PO; ZOLPIDEM
--- NOTE | 2021-10-05 15:38 | NUR ---
ARRIVAL PATIENT ARRIVED TO ED4 VIA W/C WITH FAMILY, C/O SLEEPINESS AND POSSIBLE LOW BLOOD PRESSURE, PATIENT CALLED DOCTOR BRET'S OFFICE AND WAS TOLD TO COME TO THE ED FOR EVAL, VITALS SIGNS OBTAINED AND DOCTOR NOTIFIED OF PATIENT'S ARRIVAL.
--- NOTE | 2021-10-05 16:15 | ER.PDOC ---
General Chief Complaint: General Complaint Stated Complaint: POSSIBLE LOW BP,SLEEPY,WEAKNESS TRAVEL OUT OF US: No Time seen by MD: 17:00 Source: patient Exam Limitations: no limitations History of Present Illness Initial Comments Sent from clinic for IV fluids because of medication induced hypotension and lightheadedness last 24 hours Timing/Duration: 24 hours Severity: mild Modifying Factors: improves with movement, improves with rest Associated Symptoms: weakness Allergies: Coded Allergies: Sulfa (Sulfonamide Antibiotics) (Verified Allergy, Unknown, 09/24/21) metoclopramide (Verified Allergy, Unknown, 09/24/21) codeine (Verified Adverse Reaction, Unknown, ITCHING, 09/24/21) Home Meds Active Scripts Potassium Chloride (KLOR-CON 10) 10 Meq Tablet.er, 10 MEQ PO DAILY, #20 Prov:SOBIA MARAVILLA MD 09/25/21 Furosemide (FUROSEMIDE) 20 Mg Tablet, 20 MG PO DAILY, #30 TAB Prov:SOBIA MARAVILLA MD 09/25/21 Metoprolol Tartrate 25MG (LOPRESSER 25MG) 25 Mg Tablet, 25 MG PO BID, #60 TAB Prov:SOBIA MARAVILLA MD 09/25/21 Apixaban (Eliquis) 5 Mg Tablet, 5 MG PO BID, #60 TAB Prov:SOBIA MARAVILLA MD 09/25/21 Reported Medications Sertraline Hcl (ZOLOFT) 100 Mg Tablet, 1 TAB PO DAILY, #30 TAB 5 Refills 09/24/21 Promethazine Hcl (PROMETHAZINE HCL) 12.5 Mg Tablet, 1 TAB PO Q6 PRN for N/V for 7 Days, #28 TAB 0 Refills 09/24/21 Cyclobenzaprine Hcl (FLEXERIL) 10 Mg Tablet, 1 TAB PO BID, #90 TAB 09/24/21 Sucralfate (CARAFATE) 1 Gm Tablet, 1 TAB PO TIDAC for 30 Days, #120 TAB 0 Refills 09/24/21 Citalopram Hydrobromide (CITALOPRAM HBR) 20 Mg Tablet, 1 TAB PO DAILY, #30 TAB 5 Refills 09/24/21 Pantoprazole Sodium (PROTONIX) 40 Mg Tablet.dr, 1 TAB PO DAILY, #30 TAB 5 Refills 09/24/21 Rosuvastatin 20MG (CRESTOR 20MG) 20 Mg Tablet, 1 TAB PO HS, #30 TAB 5 Refills 09/24/21 Zolpidem Tartrate (AMBIEN) 10 Mg Tablet, 10 MG PO HS 09/24/21 Ondansetron (ONDANSETRON ODT) 8 Mg Tab.rapdis, 8 MG PO Q8HR 09/24/21 [Zolpidem] No Conflict Check 09/24/21 Oxybutynin Chloride (OXYBUTYNIN CHLORIDE) 5 Mg Tablet, 1 TAB PO TID 09/24/21 Losartan Potassium (COZAAR) 50 Mg Tablet, 1 TAB PO QD 09/24/21 Past Medical History Medical History: cardiac problems, GERD, hypertension Surgical History: appendectomy, breast augmentation, cholecystectomy, tonsillectomy, other LMP (females 10-50): postmenopause Social History Alcohol Use: none Drug Use: none Reviewed Nursing Reviewed: Vital Signs, Abn. 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 as Tested Skin: Normal Color Lymphatic: No Adenopathy Results/Orders Results/Orders Orders - DREAD DUGAN MD Free T4(Ml) (10/05/21 16:11) 0.9 % Sodium Chloride (Ns 1000ml) (10/05/21 16:23) 0.9 % Sodium Chloride (Ns 1000ml) (10/05/21 16:30) Vital Signs Date Time Temp Pulse Resp B/P (MAP) Pulse Ox O2 Delivery O2 Flow Rate FiO2 10/05/21 17:43 98.8 55 20 110/66 (81) 96 Room Air 10/05/21 17:01 98.8 55 20 135/66 (89) 96 Room Air 10/05/21 15:38 98.8 51 20 10/05/21 15:38 98.8 51 20 103/49 (67) 96 Room Air 10/05/21 15:38 98.8 51 20 96 09/25/21 09:20 65 Laboratory Tests Test 10/05/21 16:23 Free Thyroxine 0.60 ng/dL (0.76-1.46) L Progress Progress TOLERATING PO FLUIDS ER DEPART Departure Time of Disposition: 17:22 Disposition: 01 HOME / SELF CARE / HOMELESS Impression: Primary Impression: Medication side effect Condition: Improved Referrals: MARIPOSA MEJIA MD (PCP) PRIMARY CARE PROVIDER Duration or Time Spent with Pa: ElisM DREAD DUGAN MD Oct 05, 2021 16:15
[2021-10-05] MEDS ORDERED: NS 1000ML 1,000 ML IV STA (16:23)
[2021-10-05] MEDS ORDERED: NS 1000ML 1,000 ML ONE (16:30)
[2021-10-05 17:01] VITALS: BP 135/66
[2021-10-05 17:43] VITALS: BP 110/66
[2021-10-24] MEDS ORDERED: METO25TA4 PO (12:27)
[2021-10-24] MEDS ORDERED: DIAZ5TAB PO (12:27)
[2021-10-24] MEDS ORDERED: LEVO50CA4 PO (12:27)
[2021-10-24] MEDS ORDERED: ONDA-87 PO (12:27)
[2021-10-24] MEDS ORDERED: PROM25TA10 PO (12:27)
[2021-10-24] MEDS ORDERED: LOVA20TA2 PO (12:27)
== END 2021-10-05 17:52 | disposition home or self-care (01) ==
LOC: ER 15:38
DX: I95.9 Hypotension, unspecified (principal); T50.905A Adverse effect of unspecified drugs, medicaments and biological substances, initial encounter; Y92.89 Other specified places as the place of occurrence of the external cause; I10 Essential (primary) hypertension; Z87.19 Personal history of other diseases of the digestive system; Z90.49 Acquired absence of other specified parts of digestive tract; Z98.82 Breast implant status; Z98.890 Other specified postprocedural states
CPT/HCPCS: 36415; 84439; 96360; 99283; J7030; 96361

== ENCOUNTER → 2021-10-24 | Outpatient (CLI) | payer MEDICARE ==
[~2021-10-24] MED LIST changes: +DIAZ5TAB PO; +LEVO50CA4 PO; +LEXISCAN IV ONE; +LOVA20TA2 PO; +ONDA-87 PO; +PROM25TA10 PO
--- NOTE | 2021-10-24 21:50 | PCM.ECHO ---
APPROVED REPORT EXAM: Comprehensive 2D, Doppler, and color-flow Echocardiogram. Patient Location: OUT-PATIENT Indications Heart failure unspecified 2D Dimensions LVOT Diameter 2.22 (1.8-2.4cm) LVEF(%) 60.19 (>50%) M-Mode Dimensions RVDd 0.65 (2.1-3.2cm) Left Atrium(MM) 3.20 (2.5-4.0cm) IVSd 1.00 (0.7-1.1cm) Aortic Root 2.75 (2.2-3.7cm) LVDd 4.15 (4.0-5.6cm) Aortic Cusp Exc 1.95 (1.5-2.0cm) PWd 0.35 (0.7-1.1cm) MV EPSS 0.38 (<0.5cm) IVSs 1.35 cm FS (%) 43.80 % LVDs 2.30 (2.0-3.8cm) ESV(Teich) 18.90 ml PWs 1.25 cm LVEF(%) 75.47 (>50%) Volumes Biplane 2D LV Volumes Biplane 2D LA Volumes LVEDv A4C 69.77 mL LA ESV Index LVESv A4C 27.78 mL Mitral Valve MV E Velocity 0.60m/s MR Peak Gr. 42.50mmHg MV A Velocity 0.75m/s TDI Lateral E' P. V 0.08m/s Medial E' P. V 0.06m/s Pulmonary Valve PV Peak Velocity 0.75m/s PV Peak Grad. 2.45mmHg RVOT VTI 18.87cm Tricuspid Valve TR P. Velocity 1.55m/s RAP ESTIMATE 10.00mmHg TR Peak Gr. 9.90mmHg RVSP 19.90mmHg LEFT VENTRICLE The left ventricle is normal size. The left ventricular systolic function is normal. The left ventricular ejection fraction is within the normal range. There is normal left ventricular wall thickness. There is normal LV segmental wall motion. Mild diastolic dysfunction is present (impaired relaxation pattern). There is no ventricular septal defect visualized. No left ventricle thrombus noted on this study. LVEF is 60%. RIGHT VENTRICLE The right ventricle is normal size. The right ventricular systolic function is normal. There is normal right ventricular wall thickness. ATRIA The left atrium size is normal. The right atrium size is normal. The interatrial septum is intact with no evidence for an atrial septal defect. AORTIC VALVE The aortic valve is normal in structure. There is no aortic valvular stenosis. No aortic regurgitation is present. There is no aortic valvular vegetation. MITRAL VALVE The mitral valve is normal in structure. There is no mitral valve stenosis. Mild mitral regurgitation. There is no evidence of mitral valve vegetations. TRICUSPID VALVE The tricuspid valve is normal in structure. There is no tricuspid valve stenosis. Mild tricuspid regurgitation. There is no tricuspid valve vegetations. PULMONIC VALVE Pulmonic valve is not well visualized. There is no pulmonic valvular stenosis. There is no pulmonic valvular regurgitation. GREAT VESSELS The aortic root is normal in size. Pulmonary artery is not well visualized. Aortic arch is not well visualized. IVC is normal in size. PERICARDIUM Trace pericardial effusion. Moderate left pleural effusion. Small right pleural effusion. Ascites is present. Other Information Study Quality: Fair <Conclusion> The left ventricular systolic function is normal. LVEF is 60%. Mild diastolic dysfunction is present (impaired relaxation pattern). Mild mitral regurgitation. Mild tricuspid regurgitation. Trace pericardial effusion. Moderate left pleural effusion. Small right pleural effusion. Ascites is present. Electronically signed by : FER QUEEN. 10/24/2021 21:49:42
--- NOTE | 2021-10-25 02:12 | STRESS ---
DATE OF SERVICE: 10/24/2021 DICTATOR NAME: FER QUEEN CARDIAC STRESS TEST INDICATION: Chest pain. FINDINGS: Baseline EKG shows sinus bradycardia with nonspecific ST-T wave changes and poor R-wave progression, cannot exclude an old anterior septal infarct. Stress EKG shows sinus tachycardia, unchanged from baseline. At the end of recovery, EKG shows normal sinus rhythm, unchanged from baseline. Premature ventricular complexes are noted during stress. Baseline heart rate is 55 beats per minute and lilian to 109 beats per minute during stress. At the end of recovery, the heart rate was 73 beats per minute. Baseline blood pressure was 131/83 and remained the same during stress. At the end of recovery, the blood pressure was 157/91. Blood pressure and heart rate were appropriate for stress. There were no significant symptoms noted during stress. There were no arrhythmias noted during stress. EKG portion of stress test is negative for myocardial ischemia. Nuclear images were obtained with a rest dose of 10.05 mCi technetium-99 sestamibi, and a stress dose of 33.1 mCi technetium 99 sestamibi. Nuclear images reveal homogeneous tracer distribution across all wall segments as visualized in both rest and stress images, with no evidence of myocardial ischemia or infarction. Left ventricular ejection fraction is 75%. EDV is 34 mL, ESV is 9 mL. The left ventricle is normal in size. Gated motion images showed normal wall motion across all segments of the left ventricle. TID is 1.4. There is no evidence of diaphragmatic attenuation artifact. IMPRESSION: 1. Normal myocardial perfusion imaging with no evidence of myocardial ischemia or infarction. 2. Left ventricular ejection fraction of 75%. 3. This is a negative study. Sunita COHEN D.O. DR: KA/RU TID: [id number] RECEIPT: [id number]
== END | disposition home or self-care (01) ==
LOC: RAD 10:41
PROVIDERS: ATTEND Internal Medicine Interventional Cardiology
DX: I08.1 Rheumatic disorders of both mitral and tricuspid valves (principal); J90 Pleural effusion, not elsewhere classified; R18.8 Other ascites; R07.9 Chest pain, unspecified; Z68.22 Body mass index [BMI] 22.0-22.9, adult
CPT/HCPCS: 78452; 93017; 93306; A9500; J2785

== ENCOUNTER → 2021-10-25 | Outpatient (CLI) | payer MEDICARE ==
[~2021-10-25] MED LIST changes: -LEXISCAN IV ONE
--- NOTE | 2021-10-25 15:15 | DIREP ---
PROCEDURE:CT CHEST W/O COMPARISON:None. INDICATIONS:PLEURAL EFFUSION TECHNIQUE:Helical sections through the chest were performed from the lung apices through the diaphragms without IV contrast. Sagittal and coronal reconstructions are obtained from source images. FINDINGS: LUNGS:Normal. No visible pulmonary disease. PLEURA:Normal. No mass or effusion. CARDIAC:Normal. No enlargement, pericardial thickening, or significant calcification. MEDIASTINUM:Normal. No mass or adenopathy. KIP:Normal. No mass or adenopathy. AORTA:Normal. No aneurysm. CHEST WALL:Normal. No mass or axillary adenopathy. LIMITED ABDOMEN:Postsurgical changes of the stomach. Limited images of the upper abdomen are unremarkable. BONES:Normal. No bony lesion or fracture. OTHER:Bilateral breast implants. CONCLUSION:No acute disease. Dictated by: Kt Edge DO on 10/25/2021 at 03:10 PM
== END | disposition home or self-care (01) ==
LOC: RAD 13:20
PROVIDERS: ATTEND Internal Medicine Interventional Cardiology
DX: J90 Pleural effusion, not elsewhere classified (principal)
CPT/HCPCS: 71250

== ENCOUNTER → 2021-10-27 | Day surgery (SDC) | payer MEDICARE, OTHER ==
[2021-10-24 13:41] LABS: BASOPHIL % 0.6 % (0.0-0.2); EOSINOPHIL # 0.1 10^3/uL (0.0-0.2); EOSINOPHIL % 0.9 % (0.0-5.0); LYMPHOCYTES # 2.14 10^3/uL1 (1.0-4.8); LYMPHOCYTES % 33.8 % (24.0-44.0); MEAN CORP HGB 33.3 pg (26-34); MONOCYTES # 0.7 10^3/uL (0.3-0.8); MONOCYTES % 11.7 % (5.0-12.0); NEUTROPHIL # 3.4 10^3/uL (1.8-7.7); PLATELET COUNT 199 10^3/uL (150-400); RED CELL DISTRIBUTION WIDTH 13.1 % (11.5-14.5)
[2021-10-24 13:55] LABS: CARBON DIOXIDE 26.8 mmol/L (20.0-32)
[~2021-10-27] VITALS: Ht 162.6 cm; Wt 59.0 kg
[2021-10-27] VITALS (9 sets, daily range): BP systolic 109–156; BP diastolic 65–85
[~2021-10-27] MED LIST changes: +MORPHINE SULFATE ONE; +NS 1000ML 1,000 ML IV SCH; +NS 1000ML 1,000 ML ONE; +SUBLIMAZE ONE; +TYLENOL ONE; +TYLENOL PO ONE; +VERSED ONE; +XYLOCAINE ONE
--- NOTE | 2021-10-28 00:01 | CCLR ---
DATE OF PROCEDURE: 10/27/2021 DICTATOR NAME: FER QUEENDO CARDIAC CATHETERIZATION LAB PROCEDURE PROCEDURE PERFORMED: Implantation of a CardioMEMS pulmonary artery sensor in the left pulmonary artery. INDICATIONS: This is a 66-year-old female with a history of congestive heart failure, [place] Heart Association class III, who was recently hospitalized for decompensated heart failure in 08/2021. She was then set up for implantation of a CardioMEMS pulmonary artery sensor for remote monitoring of pulmonary arterial pressures in an attempt to reduce hospitalizations due to heart failure. PROCEDURES PERFORMED: 1. Successful implantation of the CardioMEMS pulmonary artery sensor in the left pulmonary artery. 2. Right heart catheterization. 3. Left pulmonary artery angiogram. 4. Inferior vena cavogram. 5. Hemostasis established using a [id number]-vzgyr stitch over the right common femoral vein. PROCEDURAL DETAILS: Access was obtained using a 4-[place] micropuncture kit to cannulate the right common femoral vein. The 4-[place]izen [place] sheath was then upsized to an 8-[place]izen [place] sheath. The 8-[place]izen [place] sheath was subsequently upsized to a 10-Citizen [place] sheath and then a 12-[place]izen [place] sheath. Inferior venacavogram was then carried out to visualize the inferior vena cava. A 7-[place] pulmonary wedge catheter was then advanced through the 12-[place]izen [place] sheath and right heart catheterization was performed. Below are the findings from right heart catheterization: 1. Right atrial pressure 8/6/4 mmHg. 2. Right ventricular pressure is 34/2/0 mmHg. 3. Pulmonary arterial pressure is 27/13/19 mmHg. 4. Pulmonary capillary wedge pressure is 19/22/15 mmHg. 5. Aortic oxygen saturation is 100%. 6. Pulmonary artery oxygen saturation is 69%. 7. Cardiac output is 4 liters per minute. 8. Cardiac index is 2.1 liters per minute per meter squared. Following right heart catheterization, left pulmonary artery angiogram was then performed and a roadmap for deployment of the CardioMEMS sensor was determined. Following pulmonary angiogram, an 0.018 Green Steelcore wire was then advanced through the pulmonary wedge catheter and the wire was parked in the posterior branch of the left pulmonary artery. The pulmonary wedge catheter was then taken out. The CardioMEMS pulmonary artery sensor delivery catheter was then introduced over the 0.018 Steelcore wire and the CardioMEMS device was successfully deployed in the left pulmonary artery. The Steelcore wire and the delivery catheter was then pulled back into the pulmonary trunk. The delivery catheter was then taken out and the Steelcore wire was left in place. The 7-[place] pulmonary wedge catheter was then reintroduced over the wire and pulmonary arterial pressures were determined. The CardioMEMS sensor was then calibrated. Following calibration, the pulmonary wedge catheter was taken out and hemostasis was established using a [id number]-[id number] stitch over the right common femoral vein. The patient tolerated the procedure well. There were no complications. The patient left the lab asst in stable condition. IMPRESSION: 1. successful implantation of a CardioMEMS pulmonary artery sensor in the left pulmonary artery. 2. Right heart catheterization with findings noted above. 3. Left pulmonary artery angiogram. 4. Inferior vena cavogram. 5. Hemostasis established using a [id number]-vv-[id number] stitch over the right common femoral vein. RECOMMENDATIONS: The patient will be discharged home on dual antiplatelet therapy with aspirin 81 mg p.o. daily as well as Plavix 75 mg p.o. daily. Plavix will be discontinued after 30 days and the patient will remain on baby aspirin indefinitely. Post-implantation instructions have been given to the patient. The patient will be discharged home today to follow up with me in the office in 2 weeks. Sunita COHEN D.O. DR: ANASTASIIA SIMONS: [phone] RECEIPT: [id number]
== END | disposition home or self-care (01) ==
LOC: CCL 08:03
PROVIDERS: ATTEND Internal Medicine Interventional Cardiology
DX: I50.22 Chronic systolic (congestive) heart failure (principal); I11.0 Hypertensive heart disease with heart failure; I48.0 Paroxysmal atrial fibrillation; E03.9 Hypothyroidism, unspecified; E78.2 Mixed hyperlipidemia; K21.9 Gastro-esophageal reflux disease without esophagitis; Z98.890 Other specified postprocedural states; Z90.49 Acquired absence of other specified parts of digestive tract; Z90.710 Acquired absence of both cervix and uterus; Z87.891 Personal history of nicotine dependence; Z72.89 Other problems related to lifestyle; Z79.82 Long term (current) use of aspirin; Z79.01 Long term (current) use of anticoagulants
CPT/HCPCS: 78452; 80053; 85025; 36415; 85610; 85730; 93017; 93306; 71250; 33289; 99153 ×2; 99152; 82810; J2785; A9500; J7030; J2270; J1644; J2250; J3010; J3490; C1769 ×2; C1892 ×2; C2624; Q9967; 75741; 75825

== ENCOUNTER 2021-11-25 10:27 | Emergency (ER) | payer MEDICARE ==
[~2021-11-25] VITALS: Ht 162.6 cm; Wt 57.6 kg
[~2021-11-25 10:27] MED LIST changes: -MORPHINE SULFATE ONE; -NS 1000ML 1,000 ML IV SCH; -NS 1000ML 1,000 ML ONE; -SUBLIMAZE ONE; -TYLENOL ONE; -TYLENOL PO ONE; -VERSED ONE; -XYLOCAINE ONE
--- NOTE | 2021-11-25 10:36 | NUR ---
ARRIVAL PT AMBULATES TO ED8 WITH NEED OF MEDICAL CLEARANCE D/T ALCOHOL ABUSE. PT STATES THAT SHE HAS BEEN ACCEPTED TO [facility] IN [place] BUT NEEDS TO BE MEDICALLY CLEARED. PT STATES THAT SHE HAS BEEN ABUSING ALCOHOL FOR 1 YEAR AND A HALF. PT STATES THAT SHE BEGAN TO ABUSE ALCOHOL WHEN HER MOTHER . THE PT IS ABUSING THE USE OF BEER AND VODKA. PT DENIES SUICIAL AND HOMICIDAL IDEATIONS. VITALS OBTAINED. NOTIFIED OF PTS ARRIVAL.
[2021-11-25 10:53] VITALS: BP 116/76
--- NOTE | 2021-11-25 11:06 | PCM.EKG ---
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
[2021-11-25 11:26] LABS: BASOPHIL % 0.4 % (0.0-0.2); EOSINOPHIL # 0.1 10^3/uL (0.0-0.2); EOSINOPHIL % 1.1 % (0.0-5.0); LYMPHOCYTES # 1.87 10^3/uL1 (1.0-4.8); LYMPHOCYTES % 23.3 % (24.0-44.0); MEAN CORP HGB 34.1 pg (26-34); MONOCYTES # 1.1 10^3/uL (0.3-0.8); MONOCYTES % 13.1 % (5.0-12.0); PLATELET COUNT 217 10^3/uL (150-400); RED CELL DISTRIBUTION WIDTH 13.3 % (11.5-14.5)
--- NOTE | 2021-11-25 11:34 | DIREP ---
PROCEDURE:CHEST 1 VIEW COMPARISON:[facility], CR, XRAY CHEST SINGLE VW, 09/24/2021, 06:29 AM. INDICATIONS:ams FINDINGS: LUNGS/PLEURA:No significant pulmonary parenchymal abnormalities. No effusions. No pneumothorax VASCULATURE:Normal. Unremarkable pulmonary vasculature. CARDIAC:Normal. No cardiac silhouette abnormality or cardiomegaly. MEDIASTINUM:Normal. No visible mass or adenopathy. BONES:Normal. No fracture or visible bony lesion. OTHER:Negative. CONCLUSION:No acute disease. No significant change has occurred. Dictated by: Emilio Hicks MD on 11/25/2021 at 11:31 AM
[2021-11-25 12:02] LABS: BILIRUBIN,URINE NEGATIVE (NEGATIVE)
[2021-11-25 12:05] LABS: CARBON DIOXIDE 25.6 mmol/L (20.0-32); GLUCOSE 98 mg/dL (70-110)
[2021-11-25 12:35] VITALS: BP 112/73
[2021-11-25] MEDS ORDERED: MACROBID PO STA (12:45)
[2021-11-25] MEDS ORDERED: MACROBID ONE (12:49)
[2021-11-25 13:19] VITALS: BP 111/73
--- NOTE | 2021-11-26 07:24 | ER.PDOC ---
General Chief Complaint: Medical Clearance Stated Complaint: MEDICAL CLEARANCE TRAVEL OUT OF US: No Time seen by MD: 07:23 Source: patient, family Exam Limitations: no limitations History of Present Illness Timing/Duration: constant Severity: severe Modifying Factors: improves with other Associated Symptoms: denies symptoms Allergies: Coded Allergies: Sulfa (Sulfonamide Antibiotics) (Verified Allergy, Unknown, 10/24/21) metoclopramide (Verified Allergy, Unknown, 10/24/21) codeine (Verified Adverse Reaction, Unknown, ITCHING, 10/24/21) Home Meds Active Scripts Potassium Chloride (KLOR-CON 10) 10 Meq Tablet.er, 10 MEQ PO DAILY, #20 Prov:SOBIA MARAVILLA MD 09/25/21 Furosemide (FUROSEMIDE) 20 Mg Tablet, 20 MG PO DAILY, #30 TAB Prov:SOBIA MARAVILLA MD 09/25/21 Apixaban (Eliquis) 5 Mg Tablet, 5 MG PO BID, #60 TAB Prov:SOBIA MARAVILLA MD 09/25/21 Reported Medications Levothyroxine Sodium (Levothyroxine) 50 Mcg Capsule, 1 CAP PO DAILY24 10/24/21 Lovastatin (LOVASTATIN) 20 Mg Tablet, 1 TAB PO HS, #30 TAB 5 Refills 10/24/21 Ondansetron Hcl (ONDANSETRON HCL) 4 Mg Tablet, 4 MG PO Q6 PRN for NAUSEA/VOMITING, TABLET 10/24/21 Promethazine Hcl (PROMETHAZINE HCL) 25 Mg Tablet, 25 MG PO Q6 PRN for NAUSEA/VOMITING, TAB 10/24/21 Diazepam (VALIUM) 5 Mg Tablet, 1 TAB PO DAILY24 PRN for ANXIETY, #30 TAB 10/24/21 Metoprolol Tartrate 25MG (LOPRESSER 25MG) 25 Mg Tablet, 0.5 TAB PO BID, #180 TAB 1 Refill 10/24/21 Sucralfate (CARAFATE) 1 Gm Tablet, 1 TAB PO BID for 30 Days, #120 TAB 0 Refills 09/24/21 Citalopram Hydrobromide (CITALOPRAM HBR) 20 Mg Tablet, 1 TAB PO DAILY, #30 TAB 5 Refills 09/24/21 Pantoprazole Sodium (PROTONIX) 40 Mg Tablet.dr, 1 TAB PO BID, #30 TAB 5 Refills 09/24/21 Zolpidem Tartrate (AMBIEN) 10 Mg Tablet, 10 MG PO HS 09/24/21 Oxybutynin Chloride (OXYBUTYNIN CHLORIDE) 5 Mg Tablet, 1 TAB PO DAILY24 09/24/21 Past Medical History Medical History: cardiac problems, congestive heart failure, GERD, high cholesterol, hypertension, thyroid disease Surgical History: appendectomy, cholecystectomy, hysterectomy, tonsillectomy Social History Alcohol Use: heavy Drug Use: none Review of Systems Psychiatric/Neurological: other All Other Systems: Reviewed and Negative Physical Exam General Appearance: Mild Distress EENT: eyes nml inspection, nml ENT inspection Neck: Non-Tender, Full Range of Motion Respiratory: chest non-tender, lungs clear CVS: reg rate & rhythm, no murmur Gastrointestinal: Normal Bowel Sounds, No Organomegaly Back: Normal Inspection, No CVA Tenderness Extremities: Normal Range of Motion, Non-Tender Neurologic/Psychiatric: No Motor/Sensory Deficits, Alert, Oriented x 3 Skin: Normal Color, Warm/Dry Lymphatic: No Adenopathy, Axilla Node Tender (R) Results/Orders Results/Orders Orders - JULES ALLEN MD Cbc With Auto Diff (11/25/21 10:56) Comprehensive Metabolic Panel (11/25/21 10:56) Urinalysis (11/25/21 10:56) Thyroid Stimulating Horm(Ml) (11/25/21 10:56) Drug Scrn Med W Confirmation (11/25/21 10:56) Vitamin D Total 25 Hydroxy (11/25/21 10:56) RPR (11/25/21 10:56) Hemoglobin A1c(Ml) (11/25/21 10:56) Lipid Panel(Ml) (11/25/21 10:56) Alcohol(Ml) (11/25/21 10:56) Acetaminophen(Ml) (11/25/21 10:56) Salicylate(Ml) (11/25/21 10:56) Ekg-Routine (11/25/21 10:56) Xr Chest 1v (11/25/21 10:56) Troponin I High Sensitivity (11/25/21 10:56) Covid19 Antigen Antonina Venita (11/25/21 11:57) Urine Culture (11/25/21 11:37) Nitrofurantoin Monohyd/M-Cryst (Macrobid (11/25/21 12:45) Nitrofurantoin Monohyd/M-Cryst (Macrobid (11/25/21 12:49) Vital Signs Date Time Temp Pulse Resp B/P (MAP) Pulse Ox O2 Delivery O2 Flow Rate FiO2 11/25/21 13:19 97.9 75 18 111/73 (86) 98 Room Air* 0 21 11/25/21 12:35 97.9 72 18 112/73 (86) 98 Room Air* 0 21 11/25/21 10:53 97.9 76 18 98 11/25/21 10:53 97.9 76 18 11/25/21 10:53 97.9 76 18 116/76 (89) 98 Room Air* 0 21 Administered Medications Medications (Trade) Dose Ordered Sig/Juan Route PRN Reason Start Time Stop Time Status Last Admin Dose Admin Nitrofurantoin Macrocrystals (Macrobid) 100 mg STAT STAT PO 11/25/21 12:45 11/25/21 13:21 DC 11/25/21 12:53 100 MG Laboratory Tests Test 11/25/21 11:15 11/25/21 11:37 11/25/21 11:58 White Blood Count 8.0 10^3/uL (4.5-11.0) Red Blood Count 3.99 10^6/uL (4.00-5.20) L Hemoglobin 13.6 g/dL (12.0-15.0) Hematocrit 40.4 % (36.0-46.0) Mean Corpuscular Volume 101.3 fL (78-100) H Mean Corpuscular Hemoglobin 34.1 pg (26-34) H Mean Corpuscular Hemoglobin Concent 33.7 g/dL (33-36.5) Red Cell Distribution Width 13.3 % (11.5-14.5) Platelet Count 217 10^3/uL (150-400) Mean Platelet Volume 10.3 fL (7.8-11.0) Neutrophils (%) (Auto) 62.0 % (41.0-85.0) Lymphocytes (%) (Auto) 23.3 % (24.0-44.0) L Monocytes (%) (Auto) 13.1 % (5.0-12.0) H Neutrophils # (Auto) 5.0 10^3/uL (1.8-7.7) Lymphocytes # (Auto) 1.87 10^3/uL1 (1.0-4.8) Monocytes # (Auto) 1.1 10^3/uL (0.3-0.8) H Absolute Immature Granulocyte (auto 0.01 10^3 u/L (0-2) Absolute Eosinophils (auto) 0.1 10^3/uL (0.0-0.2) Immature Granulocytes % 0.10 % (0.00-0.50) Eosinophils % 1.1 % (0.0-5.0) Basophils % 0.4 % (0.0-0.2) H Basophils # 0.0 10^3/uL (0.0-0.1) Sodium Level 137 mmol/L (132-145) Potassium Level 3.8 mmol/L (3.6-5.2) Chloride Level 103.0 mmol/L (96-109) Carbon Dioxide Level 25.6 mmol/L (20.0-32) Anion Gap 12.2 Blood Urea Nitrogen 9 mg/dL (7-18) Creatinine 0.90 mg/dL (0.59-1.40) Estimated GFR () 76.0 (>/=60) Est GFR (CKD-EPI)(Non-Afr [place]) 62.8 (>/=60) BUN/Creatinine Ratio 10.0 Glucose Level 98 mg/dL (70-110) Hemoglobin A1c 5.3 % (0-5.7) Calcium Level 9.3 mg/dL (8.4-10.5) Total Bilirubin 0.6 mg/dL (0.2-1.0) Aspartate Amino Transferase (AST) 37 U/L (0-35) H Alanine Aminotransferase (ALT) 33 U/L (12-78) Alkaline Phosphatase 140 U/L (50-136) H Troponin I High Sensitivity 5 ng/L (0-50) Total Protein 7.5 g/dL (6.4-8.2) Albumin 4.0 g/dL (3.4-5.0) Globulin 3.5 Albumin/Globulin Ratio 1.142 Triglycerides Level 104 mg/dL (20-200) Cholesterol Level 144 mg/dL (120-240) LDL Cholesterol, Calculated 60.2 VLDL Cholesterol, Calculated 20.8 HDL Cholesterol 63 mg/dL (32-96) Cholesterol Ratio (LDL/HDL) 0.9 Cholesterol/HDL Ratio 2.560023 Vitamin D 25-Hydroxy 55.4 ng/mL (30.0-100.0) Thyroid Stimulating Hormone (TSH) 2.471 mIU/mL (0.358-3.740) Salicylates Level < 2.8 mg/dL (2.8-20.0) L Acetaminophen Level < 2 ug/mL (10-30) L Serum Alcohol < 3 mg/dL (0-50) Rapid Plasma Reagin NONREACTIVE (NONREACTIVE) Urine Collection Type RANDOM Urine Color YELLOW Urine Appearance CLOUDY Urine Bilirubin NEGATIVE (NEGATIVE) Urine Ketones NEGATIVE (NEGATIVE) Urine Specific [place] 1.015 (1.005-1.030) Urine pH 7.0 (4.5-8.0) Urine Protein NEGATIVE (NEGATIVE) Urine Urobilinogen 1.0 E.U./dL (0.2) Urine Nitrate POSITIVE (NEGATIVE) H Urine Leukocyte Esterase 3+ (NEGATIVE) H Urine Glucose (Auto)(UA) NEGATIVE (NEGATIVE) Urine Blood TRACE-INTACT (NEGATIVE) H Urine RBC 0-2 RBC/HPF (NONE SEEN) Urine WBC 10-25 WBC/HPF (0-2) H Urine Squamous Epithelial Cells MODERATE (<=FEW) Urine Bacteria MANY (NONE SEEN) H Urine Opiates Screen NEGATIVE (c/o300ng/mL) Urine Methadone Screen NEGATIVE (c/o300ng/mL) Urine Barbiturates Screen NEGATIVE (c/o200ng/mL) Urine Phencyclidine Screen NEGATIVE (c/o 25ng/mL) Ur Amphetamine/Methamphetamine NEGATIVE ([id number]/mL) Urine MDMA Screen (Ecstasy) NEGATIVE (c/o300ng/mL) Urine Benzodiazepines Screen PRESUMPTIVE POSITIVE Urine Cocaine Metabolite Screen NEGATIVE (c/o300ng/mL) Ur Tetrahydrocannabinol (THC) Scrn NEGATIVE (c/o 50ng/mL) SARS-CoV-2 Antigen (Rapid) NEGATIVE (NEGATIVE) ER DEPART Departure Time of Disposition: 07:22 Disposition: 62 INPATIENT REHAB FACILITY Impression: Primary Impression: Urinary tract infection Additional Impression: Alcohol abuse Condition: Stable Patient Instructions: Alcohol Problems, Urinary Tract Infection, [id number] Additional Instructions: IN ED: BLOOD WORK, URINALYSIS, CHEST XRAY, EKG, URINE CULTURE, 100MG MACROBID AT HOME: MACROBID 100MG 1 TABLET BY MOUTH TWICE DAILY X 7 DAYS #14 FOLLOW UP WITH PCP RETURN TO ED IF SYMPTOMS WORSEN Duration or Time Spent with Pa: 1 hr Problem Qualifiers JULES ALLEN MD November 26, 2021 07:24
== END 2021-11-25 13:21 ==
LOC: ER 10:27
DX: N39.0 Urinary tract infection, site not specified (principal); E07.9 Disorder of thyroid, unspecified; E78.00 Pure hypercholesterolemia, unspecified; F10.10 Alcohol abuse, uncomplicated; I11.0 Hypertensive heart disease with heart failure; I50.9 Heart failure, unspecified; K21.9 Gastro-esophageal reflux disease without esophagitis; Z88.2 Allergy status to sulfonamides; Z88.5 Allergy status to narcotic agent; Z90.49 Acquired absence of other specified parts of digestive tract; Z90.710 Acquired absence of both cervix and uterus; Z20.822 Contact with and (suspected) exposure to COVID-19
CPT/HCPCS: 36415; 71045; 80053; 80061; 80299; 80307; 81001; 82077; 82306; 83036; 84443; 84484; 85025; 86592; 87077; 87086; 87186; 87426; 93005; 99285

== ENCOUNTER 2022-02-21 06:20 | Day surgery (SDC) | payer MEDICARE ==
[2022-02-16 10:46] VITALS: BP 102/60
--- NOTE | 2022-02-16 11:02 | PCM.EKG ---
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
[2022-02-16 11:13] LABS: BASOPHIL # 0.1 10^3/uL (0.0-0.1); BASOPHIL % 0.9 % (0.0-0.2); EOSINOPHIL # 0.2 10^3/uL (0.0-0.2); EOSINOPHIL % 1.9 % (0.0-5.0); LYMPHOCYTES # 2.37 10^3/uL1 (1.0-4.8); LYMPHOCYTES % 30.1 % (24.0-44.0); MEAN CORP HGB 32.6 pg (26-34); MONOCYTES # 0.8 10^3/uL (0.3-0.8); MONOCYTES % 9.6 % (5.0-12.0); NEUTROPHIL # 4.5 10^3/uL (1.8-7.7); NEUTROPHILS % 57.5 % (41.0-85.0); PLATELET COUNT 309 10^3/uL (150-400); RED CELL DISTRIBUTION WIDTH 12.6 % (11.5-14.5)
[2022-02-16 11:25] LABS: CARBON DIOXIDE 29.6 mmol/L (20.0-32)
[~2022-02-21] VITALS: Ht 162.6 cm; Wt 59.0 kg
[2022-02-21 06:20] VITALS: BP 119/69
[~2022-02-21 06:20] MED LIST changes: +ANCEF 1 GM in NS 100ML 100 ML IV ONE; +CLOP75TA52 PO; +LACTATED RINGERS 1,000 ML IV SCH; +SUPREP BOWEL PREP KIT PO ONE
[2022-02-21] MEDS ORDERED: NS 100ML 100 ML IV ONE (06:23)
[2022-02-21] MEDS ORDERED: LACTATED RINGERS 1,000 ML ONE (06:23)
[2022-02-21] MEDS ORDERED: ANCEF ONE (06:23)
[2022-02-21] MEDS ORDERED: DIPRIVAN IV ONE (09:09)
[2022-02-21] MEDS ORDERED: SUBLIMAZE ONE (09:09)
[2022-02-21] MEDS ORDERED: KETALAR ONE (09:09)
[2022-02-21] MEDS ORDERED: XYLOCAINE 2% 5ML VIAL ONE (09:09)
[2022-02-21] MEDS ORDERED: VERSED ONE (09:09)
[2022-02-21 11:12] VITALS: BP 131/53
[2022-02-21 11:31] VITALS: BP 134/61
--- NOTE | 2022-02-21 11:35 | PRM.OPH ---
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 Patient had a very poor prep, with large amounts of solid stool. Procedure: EGD with multiple biopsies, colonoscopy with 1 polypectomy, and 1 biopsy Surgeon: Marti Hager MD Anesthesia: Myke Cortez, SANDWICH ARTIST, MAC Specimens: Biopsies were obtained from the linear erosions in the cardia, the GE junction x4 quadrants, 2 islands above the GE junction, near the anastomosis in the stomach, a polypectomy was performed at 75 cm on colonoscopy, and biopsy of a large polyp was obtained at 55 cm EBL: Trace from all biopsy sites, approximately 3 cc Complications: None Technique of procedure: After reviewing the consent and answering questions, the patient initially agreed to EGD, since she only tolerated about half of her prep, and then threw up. She did not attempt to drink the second half of her prep. Later, when her returned to the preop area, he convinced her to proceed with an enema per nursing, to see if she was cleared out. Nursing reported relatively clear return on the enema, so it was decided the patient could attempt the colonoscopy also. The patient was taken to the operating room on the [facility]. Supplemental oxygen and sedation were given. A bite block was placed. A timeout was Undertaken by all staff in the room to verify we had the appropriate patient and planned procedure. Once the patient was adequately sedated, the lubricated EGD scope was easily passed down the esophagus and into the stomach without difficulty. The bowel appeared normal. Biopsy was obtained at the juncture of the anastomosis. There were multiple linear erosions stretching across the cardia. These were biopsied. Retroflexion showed that the GE junction was relatively tight around the scope. The GE junction was irregular, and biopsies were obtained x4 quadrants. There were a few tiny islands just above the GE junction, and these were also biopsied. The scope was withdrawn on suction. The bed was rotated in the room, and scopes were changed. A rectal exam was performed, which showed hemorrhoids but no other significant abnormalities.The lubricated colonoscope was gently inserted into the rectum and advanced through the colon. There was some tight angles, but the colon was relatively clear up to approximately 40 cm. Beyond that, there was a lot of mucus and stool cleaned to the owen, as well as several large collections of stool. I was ultimately able to advance to the cecum, utilizing some external manual pressure. The cecum was completely full of stool, and and significant irrigation was required. Upon withdrawal, irrigation was continued, and an attempt was made to evaluate the entire mucosa quite carefully. This is difficult, due to the amount of solid stool still present, and the amount of irrigation necessary to clear the mucosa. Some diverticuli were noted, and were rather large on the left colon. A polyp was noted at 75 cm, and cold forceps were utilized for polypectomy. Upon further withdrawal, another large polyp was noted at 55. Due to the amount of stool in the area, as well as angulation, this was difficult to remove completely. It was rather large with a large base. Multiple biopsies were obtained. Again, the mucosa was examined closely on the way out. Retroflexion showed minor hemorrhoids. Patient appeared to tolerate the procedure well. EGD scope will likely be scheduled for at least a year, sooner if there are any issues. If there are any concerns, she will be referred back to Dr. Kalyan Alvarez, who previously did her laser ablation. Biopsies from the colon will b e evaluated, but she may require repeat colonoscopy, with a different and more adequate prep. MARTI HAGER MD Feb 21, 2022 11:35
[2022-02-21 11:46] VITALS: BP 124/63
[2022-02-21 12:01] VITALS: BP 110/57
[2022-02-21 12:09] VITALS: BP 134/77
== END 2022-02-21 12:25 | disposition home or self-care (01) ==
LOC: SDC 06:20
PROVIDERS: ATTEND Surgery
DX: Z12.11 Encounter for screening for malignant neoplasm of colon (principal); K21.00 Gastro-esophageal reflux disease with esophagitis, without bleeding; K29.50 Unspecified chronic gastritis without bleeding; D12.5 Benign neoplasm of sigmoid colon; D12.4 Benign neoplasm of descending colon; K64.9 Unspecified hemorrhoids; K57.30 Diverticulosis of large intestine without perforation or abscess without bleeding; I10 Essential (primary) hypertension; F41.9 Anxiety disorder, unspecified; F32.A Depression, unspecified; E78.5 Hyperlipidemia, unspecified; E03.9 Hypothyroidism, unspecified; I48.91 Unspecified atrial fibrillation; Z90.49 Acquired absence of other specified parts of digestive tract; Z72.89 Other problems related to lifestyle; Z90.710 Acquired absence of both cervix and uterus; Z90.89 Acquired absence of other organs; Z87.891 Personal history of nicotine dependence; Z79.01 Long term (current) use of anticoagulants; Z79.899 Other long term (current) drug therapy; Z98.890 Other specified postprocedural states; Z85.01 Personal history of malignant neoplasm of esophagus
CPT/HCPCS: 93005; 85025; 36415; 80048; 45380; 43239; 88305 ×2; J7120; J0690 ×2; J3490; J2001; J2250; J3010

== ENCOUNTER → 2022-04-04 | Outpatient (CLI) | payer MEDICARE ==
[~2022-04-04] MED LIST changes: -ANCEF 1 GM in NS 100ML 100 ML IV ONE; -LACTATED RINGERS 1,000 ML IV SCH; -SUPREP BOWEL PREP KIT PO ONE
--- NOTE | 2022-04-05 05:58 | PRP ---
DATE OF PROCEDURE: 04/04/2022 DICTATOR NAME: FER QUEEN DO VENOUS MAPPING ULTRASOUND INDICATION: Chronic venous insufficiency. RIGHT LOWER EXTREMITY: The right greater saphenous vein measures 3 mm in its maximum diameter. There is no evidence of significant reflux in the right greater saphenous vein. The right small saphenous vein measures 2 mm in its maximum diameter. There is no evidence of significant reflux in the right small saphenous vein. There is no evidence of deep venous thrombosis in the right lower extremity. LEFT LOWER EXTREMITY: The left greater saphenous vein measures 2 mm in its maximum diameter. There is no evidence of significant reflux in the left greater saphenous vein. The left small saphenous vein measures 4 mm in its maximum diameter. Significant reflux is noted in the left small saphenous vein with maximum reflux of 2.9 seconds. There is no evidence of deep venous thrombosis in the left lower extremity. IMPRESSION: * The left small saphenous vein is severely dilated and displays pathological reflux. * The right small saphenous vein is normal sized and does not show significant reflux. * The bilateral greater saphenous vein is normal sized and does not show significant reflux. * There is no evidence of deep venous thrombosis in the bilateral lower extremities. RECOMMENDATIONS: Conservative measures including the use of compression stockings, leg elevation and exercise is recommended for the left lower extremity. Sunita COHEN D.O. DR: OLGA SIMONS: [phone] RECEIPT: [id number]
== END | disposition home or self-care (01) ==
LOC: RAD 08:48
PROVIDERS: ATTEND Nurse Practitioner Family
DX: I86.8 Varicose veins of other specified sites (principal); I87.2 Venous insufficiency (chronic) (peripheral)
CPT/HCPCS: 93970

== ENCOUNTER → 2022-06-15 | Outpatient (CLI) | payer MEDICARE ==
[~2022-06-15] MED LIST changes: +CLOP-28 PO; -CLOP75TA52 PO
--- NOTE | 2022-06-15 14:15 | DIREP ---
PROCEDURE:XRAY HAND MIN 3 VW-RT COMPARISON:None. INDICATIONS:M25.541 PAIN IN JOINTS OF RIGHT HAND FINDINGS: BONES:Bones are osteopenic. Well corticated ossicle of the tip of the ulnar styloid process. Obliquely oriented fracture without displacement at the proximal metaphysis of the 4th metacarpal. No callus or periosteal thickening. Small osteophytes at the 1st MCP joint. JOINTS:Mild joint space loss at the 1st, 3rd MCP joints. SOFT TISSUES:TFC chondrocalcinosis OTHER:No additional findings. CONCLUSION:Fracture of the proximal 4th metacarpal. Mild arthropathy. Dictated by: Bladimir Blair M.D. on 06/15/2022 at 02:12 PM
== END | disposition home or self-care (01) ==
LOC: RAD 10:07
PROVIDERS: ATTEND Nurse Practitioner Family
DX: S62.304A Unspecified fracture of fourth metacarpal bone, right hand, initial encounter for closed fracture (principal); M19.041 Primary osteoarthritis, right hand; M85.841 Other specified disorders of bone density and structure, right hand; M11.241 Other chondrocalcinosis, right hand; M25.541 Pain in joints of right hand; X58.XXXA Exposure to other specified factors, initial encounter; Y93.89 Activity, other specified; Y92.89 Other specified places as the place of occurrence of the external cause; Y99.8 Other external cause status
CPT/HCPCS: 73130-RT

== ENCOUNTER 2022-07-21 10:47 | Emergency (ER) | payer MEDICARE ==
[~2022-07-21] VITALS: Ht 162.6 cm; Wt 59.0 kg
[2022-07-21 10:53] VITALS: BP 147/76
--- NOTE | 2022-07-21 10:53 | NUR ---
ARRIVAL PATIENT ARRIVED TO ED4 AMBULATORY, C/O A HEAD INJURY X3 DAYS AGO, PATIENT STATES SHE WAS CLIMBING OUT OF ENTRANCE AND HIT HER HEAD ON THE DOOR FRAME, WAS SEEN TODAY BY DOCTOR BRET AND THEN WENT TO DOCTOR ALIDA OFFICE AND WAS TOLD TO COME TO THE ED FOR EVAL, VITAL SIGNS TAKEN AND DOCTOR NOTIFIED OF PATIENT'S ARRIVAL.
[2022-07-21] MEDS ORDERED: TORADOL ONE (11:15)
--- NOTE | 2022-07-21 11:28 | DIREP ---
PROCEDURE:CT HEAD OR BRAIN W/O CONTRAST COMPARISON:None. INDICATIONS:Headache TECHNIQUE:CT images were created without intravenous contrast. FINDINGS: VENTRICLES:The ventricles are normal in size and configuration. CEREBRUM:Small foci of diminished attenuation in the supratentorial white matter consistent with mild leukoaraiosis. The appearance can be simulated by other processes CEREBELLUM:Negative. BRAINSTEM:Negative. BASAL CISTERNS:Negative. HEMORRHAGE:No MASS LESION:No ACUTE INFARCT:No SKULL:Normal. SINUSES:Normal. OTHER:Calcified subcutaneous lesion on the left, 1 cm in diameter. This is nonaggressive in appearance. CONCLUSION:No hemorrhage. Acute findings are not suspected, there are scattered white matter changes. While these most likely represent microvascular changes, other processes are in the differential. If felt clinically warranted nonemergent MR examination without and with contrast may prove helpful. Dictated by: Emilio Hicks MD on 07/21/2022 at 11:22 AM
[2022-07-21 11:39] VITALS: BP 146/63
[2022-07-21] MEDS: TORADOL IM STA (11:40)
--- NOTE | 2022-07-21 11:45 | ER.PDOC ---
General Chief Complaint: Headache Stated Complaint: HEAD INJURY Time seen by MD: 11:00 Source: patient Exam Limitations: no limitations History of Present Illness Initial Comments Headache status post head injury 4 days ago. Patient was standing up and hit his head against a metal. No nausea or vomiting. No blurry vision. Where: home Severity: moderate Location: occipital Method of Injury: direct blow Remembers: injury, coming to hospital Allergies: Coded Allergies: Sulfa (Sulfonamide Antibiotics) (Verified Allergy, Unknown, 10/24/21) metoclopramide (Verified Allergy, Unknown, 10/24/21) codeine (Verified Adverse Reaction, Unknown, ITCHING, 10/24/21) Home Meds Active Scripts Potassium Chloride (KLOR-CON 10) 10 Meq Tablet.er, 10 MEQ PO DAILY, #20 Prov:SOBIA MARAVILLA MD 09/25/21 Furosemide (FUROSEMIDE) 20 Mg Tablet, 20 MG PO DAILY, #30 TAB Prov:SOBIA MARAVILLA MD 09/25/21 Reported Medications Clopidogrel Bisulfate (PLAVIX) 75 Mg Tablet, 1 TAB PO QD for 30 Days, #30 TAB 0 Refills 02/16/22 Levothyroxine Sodium (Levothyroxine) 50 Mcg Capsule, 1 CAP PO DAILY24 10/24/21 Lovastatin (LOVASTATIN) 20 Mg Tablet, 1 TAB PO HS, #30 TAB 5 Refills 10/24/21 Ondansetron Hcl (ONDANSETRON HCL) 4 Mg Tablet, 4 MG PO Q6 PRN for NAUSEA /VOMITING, TABLET 10/24/21 Promethazine Hcl (PROMETHAZINE HCL) 25 Mg Tablet, 25 MG PO Q6 PRN for NAUSEA/VOM ITING, TAB 10/24/21 Diazepam (VALIUM) 5 Mg Tablet, 1 TAB PO DAILY24 PRN for ANXIETY, #30 TAB 10/24/21 Metoprolol Tartrate 25MG (LOPRESSER 25MG) 25 Mg Tablet, 0.5 TAB PO DAILY24, #180 TAB 1 Refill 10/24/21 Sucralfate (CARAFATE) 1 Gm Tablet, 1 TAB PO BID for 30 Days, #120 TAB 0 Refills 09/24/21 Citalopram Hydrobromide (CITALOPRAM HBR) 20 Mg Tablet, 1 TAB PO DAILY, #30 TAB 5 Refills 09/24/21 Pantoprazole Sodium (PROTONIX) 40 Mg Tablet.dr, 1 TAB PO BID, #30 TAB 5 Refills 09/24/21 Zolpidem Tartrate (AMBIEN) 10 Mg Tablet, 10 MG PO HS 09/24/21 Oxybutynin Chloride (OXYBUTYNIN CHLORIDE) 5 Mg Tablet, 1 TAB PO DAILY24 09/24/21 Past Medical History Medical History: cardiac problems, high cholesterol, hypertension, thyroid disease Surgical History: hysterectomy, tonsillectomy Social History Alcohol Use: none Drug Use: none Review of Systems Constitutional: no symptoms reported Respiratory: no symptoms reported Cardiovascular: no symptoms reported Gastrointestinal: no symptoms reported Genitourinary: no symptoms reported All Other Systems: Reviewed and Negative Physical Exam General Appearance: Alert, No Apparent Distress, WD/WN Head: No Evidence of Injury ENT: Nml external inspection Neck: non-tender, painless ROM, trachea midline Cardiovascular/Respiratory: Regular Rate, Rhythm, No M/R/G, Normal Peripheral Pulses, No JVD, Normal Breath Sounds, No Respiratory Distress Gastrointestinal: Normal Bowel Sounds, No Organomegaly, No Pulsatile Mass, Non Tender, Soft Back: Normal Inspection, No CVA Tenderness, No Vertebral Tenderness Extremities: Normal Range of Motion, Non-Tender, Normal Inspection, No Pedal Edema, No Calf Tenderness, Normal Capillary Refill NEURO/PSYCH: Alert, Oriented x3, Cooperative, Interactive, Mood/affect nml Cranial Nerves: Normal Hearing, Normal Speech, PERRL Motor/Sensory: No Motor Deficit, No Sensory Deficit, No Pronator Drift, Negative Babinski's Sign Skin: Normal Color, Warm/Dry Lymphatic: No Adenopathy Zainab Coma Score Best Eye Response: (4) Open Spontaneously Best Verbal Response: (5) Oriented Best Motor Response: (6) Obeys Commands Results/Orders Results/Orders Orders - SELENA GUTIÉRREZ MD Ct Head Wo Contrast (07/21/22 11:11) Ketorolac Tromethamine (Toradol) (07/21/22 11:11) Ketorolac Tromethamine (Toradol) (07/21/22 11:15) Vital Signs Date Time Temp Pulse Resp B/P (MAP) Pulse Ox O2 Delivery O2 Flow Rate FiO2 07/21/22 11:39 97.8 57 18 146/63 (90) 95 Room Air* 0 21 07/21/22 10:53 97.8 57 18 95 07/21/22 10:53 97.8 57 18 07/21/22 10:53 97.8 57 18 147/76 (99) 95 Room Air* 0 21 Administered Medications Medications (Trade) Dose Ordered Sig/Juan Route PRN Reason Start Time Stop Time Status Last Admin Dose Admin Ketorolac Tromethamine (Toradol) 30 mg STAT STAT IM 07/21/22 11:11 07/21/22 11:13 DC 07/21/22 11:40 30 MG Progress Progress Head CT showed no acute intracranial abnormality. Patient received a shot of Toradol with improvement in headache. ER DEPART Departure Time of Disposition: 11:44 Disposition: 01 HOME / SELF CARE / HOMELESS Impression: Primary Impression: Head injury, acute Condition: Improved Referrals: MARIPOSA MEJIA MD (PCP) PRIMARY CARE PROVIDER Additional Instructions: Tylenol Follow-up with your PCP in 1 week Return to ED if worsening or concerns Duration or Time Spent with Pa: 10 min Problem Qualifiers Primary Impression: Head injury, acute Encounter type: initial encounter Qualified Codes: S09.90XA - Unspecified injury of head, initial encounter SELENA GUTIÉRREZ MD Jul 21, 2022 11:45
== END 2022-07-21 11:50 | disposition home or self-care (01) ==
LOC: ER 10:47
DX: S09.90XA Unspecified injury of head, initial encounter (principal); E78.00 Pure hypercholesterolemia, unspecified; I10 Essential (primary) hypertension; E07.9 Disorder of thyroid, unspecified; Z88.2 Allergy status to sulfonamides; Z88.5 Allergy status to narcotic agent; X58.XXXA Exposure to other specified factors, initial encounter; Y93.89 Activity, other specified; Y92.89 Other specified places as the place of occurrence of the external cause; Y99.8 Other external cause status
CPT/HCPCS: 99284; 70450; 96372; J1885

== ENCOUNTER → 2022-07-24 | Outpatient (CLI) | payer MEDICARE ==
--- NOTE | 2022-07-25 05:05 | PRP ---
DATE OF PROCEDURE: 07/24/2022 DICTATOR NAME: FER QUEEN DO POST-VENOUS ABLATION DOPPLER ULTRASOUND INDICATION: Status post Varithena ablation of the left small saphenous vein. FINDINGS: There is no evidence of deep venous thrombosis in the left lower extremity. The left small saphenous vein is noncompressible. Hyperechoic material is visualized in the left small saphenous vein. There is no evidence of venous flow in the left small saphenous vein. IMPRESSION: * Successful Varithena ablation of the left small saphenous vein. * There is no evidence of deep venous thrombosis in the left lower extremity. Sunita COHEN D.O. DR: KA/ARV TID: [id number] RECEIPT: [id number]
== END | disposition home or self-care (01) ==
LOC: RAD 10:46
PROVIDERS: ATTEND Internal Medicine Interventional Cardiology
DX: I87.2 Venous insufficiency (chronic) (peripheral) (principal)
CPT/HCPCS: 93971

== ENCOUNTER → 2022-08-07 | Outpatient (CLI) | payer MEDICARE ==
--- NOTE | 2022-08-07 17:15 | DIREP ---
PROCEDURE:BONE DENSITY INDICATIONS:Z78.0 ASYMPTOMATIC MENPAUSAL STATE COMPARISON:None. FINDINGS: SUMMARY Region BMD(g/cm^2) T-Score change from prior exam L1 through L40.903-2.4 Left proximal femur0.743-2.1 Total hip left0.793-1.7 Right proximal femur0.770-1.9 Total hip right0.742 -2.1 CONCLUSION:Osteopenia Major Osteoporotic 10 Year Fracture Risk = 11.8 % Hip Fracture 10 Year Risk = 5.0 % SUGGESTED RECOMMENDATIONS: Normal & Osteopenia:Consideration should be given to use of calcium supplementation, daily multiple vitamins and adequate exercise, as preventive measures against osteoporosis, if clinically indicated. Osteoporosis & Severe Osteoporosis:In addition to the above, consideration should be given to medical therapy against osteoporosis, if clinically indicated. Dictated by: Kt Edge DO on 08/07/2022 at 05:13 PM
== END | disposition home or self-care (01) ==
LOC: BD 13:44
PROVIDERS: ATTEND Internal Medicine
DX: M85.88 Other specified disorders of bone density and structure, other site (principal); Z78.0 Asymptomatic menopausal state
CPT/HCPCS: 77080

== ENCOUNTER → 2022-11-08 | Outpatient (CLI) | payer MEDICARE ==
[~2022-11-08] MED LIST changes: +LOSA-400 PO; -LOSA50TA2 PO
[2022-11-08 13:57] LABS: BILIRUBIN,URINE NEGATIVE (NEGATIVE); UROBILINOGEN,URINE 0.2 E.U./dL (0.2)
== END | disposition home or self-care (01) ==
LOC: NPLAB 13:29
PROVIDERS: ATTEND Internal Medicine
DX: R35.0 Frequency of micturition (principal)
CPT/HCPCS: 81001; 87077; 87086; 87186

== ENCOUNTER → 2023-01-09 | Day surgery (SDC) | payer MEDICARE ==
[2023-01-04 09:46] VITALS: BP 108/76; PULSE 57; RESP 18; TEMP 97.9; O2SAT 98
[2023-01-04 09:53] LABS: BASOPHIL # 0.1 10^3/uL (0.0-0.1); BASOPHIL % 0.8 % (0.0-0.2); EOSINOPHIL # 0.2 10^3/uL (0.0-0.2); EOSINOPHIL % 2.2 % (0.0-5.0); LYMPHOCYTES # 2.59 10^3/uL1 (1.0-4.8); LYMPHOCYTES % 30.2 % (24.0-44.0); MEAN CORP HGB 31.8 pg (26-34); MONOCYTES # 0.9 10^3/uL (0.3-0.8); MONOCYTES % 10.5 % (5.0-12.0); NEUTROPHIL # 4.8 10^3/uL (1.8-7.7); NEUTROPHILS % 56.1 % (41.0-85.0); RED CELL DISTRIBUTION WIDTH 12.8 % (11.5-14.5)
--- NOTE | 2023-01-04 09:57 | PCM.EKG ---
[facility] Test Date: 2023-01-04 Test Time: 09:54:34 Pat Name: ALBERTO PAUL [place] [facility] [place]: Gender: Female Manager Program Management: MS MULLER : 1955 Requested By: MEMO SPARROW Order Number: [id number] Reading MD: Measurements Intervals [place] Rate: 44 P: 51 [place]: 132 QRS: 69 QRSD: 92 T: 50 QT: 490 QTc: 418 Interpretive Statements Marked sinus bradycardia Nonspecific ST abnormality Please click the below link to view image of tracing.
[2023-01-04 10:09] LABS: CARBON DIOXIDE 30.3 mmol/L (20.0-32)
[2023-01-09] VITALS (12 sets, daily range): BP systolic 87–121; BP diastolic 40–79; PULSE 56–72; RESP 16; TEMP 97.1–99.1; O2SAT 92–100
[~2023-01-09] VITALS: Ht 162.6 cm; Wt 53.3 kg
[~2023-01-09] MED LIST changes: +ANCEF 2 GM in NS 100ML 100 ML IV ONE; +ANCEF ONE; +BUPR150T23 PO; +DECADRON ONE; +DIPRIVAN IV ONE; +FOLI0.8C PO; +LACTATED RINGERS 1,000 ML IV SCH; +MARCAINE 0.25%-EPI 1:200,000 ONE; +MULT-129 PO; +NS 100ML 100 ML IV ONE; +OFIRMEV 1000 MG/100 ML 100 ML IV ONE; +SUBLIMAZE ONE; +WATER ONE; +XYLOCAINE 2% 5ML VIAL ONE; +ZOFRAN ONE
--- NOTE | 2023-01-09 09:40 | OPH ---
DATE OF SURGERY: 01/09/2023 DICTATOR NAME: Lalit Pena DO PREOPERATIVE DIAGNOSES: * Skin lesion on the back. * History of reflux. * History of dysphagia. POSTOPERATIVE DIAGNOSES: * Check path on skin lesion. * Gastritis. * Postop changes of the stomach. * Small sliding-type hiatal hernia. * Esophagitis. SURGEON: Lalit Pena DO. CLERICAL OFFICE: OR staff. ANESTHESIA: General by Myke Cortez CRNA plus local used on the field. PROCEDURES PERFORMED: * Excisional biopsy of skin lesion less than 2 cm. * 1.9 cm intermediate level layered closure on the back. * EGD with multiple biopsies. SPECIMENS: * Skin lesion of right midback, long tag marking lateral, short tag marking superior. * Gastric mucosa. * Esophageal mucosa. ESTIMATED BLOOD LOSS: 17 mL. COUNTS: At the completion of the case, counts were correct per OR staff. INDICATIONS: The patient is a very pleasant 67-year-old female, known from previous evaluation. Prior to procedure, informed consent was obtained. At the time of procedure, she was taken to the operative suite and placed in a supine position. With appropriate monitoring in place, preprocedure safety checklist with timeout was completed with the assistance of nursing service. After general anesthesia was obtained with LMA, she was repositioned to the left lateral recumbent position. The back was prepped and draped in a normal fashion. Previously marked skin lesion is localized. It is excised in an elliptical fashion using a 15 blade scalpel. A 4-0 Prolene was used to samira a long tag on the lateral aspect of the lesion as well as a short tag on the superior aspect of the lesion. Once completely removed, it was passed off the field. The wound bed was irrigated and treated with electrocautery to control bleeding. With good hemostasis noted, closure pursued. The deep tissues were loosely approximated with 3-0 Vicryl. The skin was closed with 4-0 Monocryl in an interrupted subcuticular fashion. Steri-Strips and sterile dressings were applied. Drapes were removed. The patient remains in the OR. Timeout was previously completed. Esophagogastroduodenoscope was advanced transorally with pneumoinsufflation distally into the duodenum. The patient has postop changes consistent with the previous Billroth-type procedure. Once the duodenum was adequately visualized, camera was slowly withdrawn to the body of stomach where there was noted to be some retained food contents. There was irritation noted in the body of stomach. Biopsies were obtained. The retroflex maneuver was performed. The cardia shows a small sliding-type hiatal hernia. The fundus was within normal limits. Camera was reduced, stomach was decompressed. Scope was slowly withdrawn. Distal esophagus shows minimal esophagitis. Biopsies were obtained. With good hemostasis noted, the scope was readvanced. The stomach was decompressed. The scope was withdrawn. Good hemostasis confirmed. The mid and proximal esophagus are visualized on slow withdrawal of the camera. The vocal cords are visualized. The camera was removed. The procedure discontinued. The patient tolerated these procedures well and there are no acute complications noted. Frances Odonnell. Lalit Pena D.O., DR: DALI TITung: [id number] RECEIPT: [id number] cc: Radhames Chaidez MD
== END | disposition home or self-care (01) ==
LOC: SDC 06:07
PROVIDERS: ATTEND Surgery
DX: K21.9 Gastro-esophageal reflux disease without esophagitis (principal); D48.5 Neoplasm of uncertain behavior of skin; L82.1 Other seborrheic keratosis; K21.00 Gastro-esophageal reflux disease with esophagitis, without bleeding; K44.9 Diaphragmatic hernia without obstruction or gangrene; K29.30 Chronic superficial gastritis without bleeding; I48.0 Paroxysmal atrial fibrillation; I10 Essential (primary) hypertension; E03.9 Hypothyroidism, unspecified; Z79.899 Other long term (current) drug therapy; Z88.8 Allergy status to other drugs, medicaments and biological substances; Z87.891 Personal history of nicotine dependence; Z90.49 Acquired absence of other specified parts of digestive tract; Z90.710 Acquired absence of both cervix and uterus; Z98.890 Other specified postprocedural states; Z86.010 Personal history of colon polyps; Z98.84 Bariatric surgery status; Z72.89 Other problems related to lifestyle; Z79.01 Long term (current) use of anticoagulants; Z79.890 Hormone replacement therapy
CPT/HCPCS: 80053; 85025; 36415; 85610; 85730; 93005; 43239; 11402; 12031; 88342; 88305; 88313; A6222; J1100; J0131; J3490 ×2; J2001; J2405; J3010

== ENCOUNTER 2023-03-05 11:19 | Emergency (ER) | payer MEDICARE ==
[~2023-03-05] VITALS: Ht 162.6 cm; Wt 49.9 kg
[~2023-03-05 11:19] MED LIST changes: -ANCEF 2 GM in NS 100ML 100 ML IV ONE; -ANCEF ONE; -DECADRON ONE; -DIPRIVAN IV ONE; -LACTATED RINGERS 1,000 ML IV SCH; -MARCAINE 0.25%-EPI 1:200,000 ONE; -NS 100ML 100 ML IV ONE; -OFIRMEV 1000 MG/100 ML 100 ML IV ONE; -SUBLIMAZE ONE; -WATER ONE; -XYLOCAINE 2% 5ML VIAL ONE; -ZOFRAN ONE
[2023-03-05 11:28] VITALS: BP 121/65; PULSE 74; RESP 16; TEMP 98; O2SAT 98
[2023-03-05] MEDS ORDERED: TORADOL ONE (11:47)
[2023-03-05] MEDS: TORADOL IM STA (11:49)
[2023-03-05 11:56] LABS: +ADD MANUAL DIFF(NO CHRG) NO; BASOPHIL # 0.1 10^3/uL (0.0-0.1); BASOPHIL % 0.8 % (0.0-0.2); EOSINOPHIL # 0.2 10^3/uL (0.0-0.2); EOSINOPHIL % 2.6 % (0.0-5.0); HEMATOCRIT(ML) 39.7 % (36.0-46.0); HEMOGLOBIN 13.5 g/dL (12.0-15.0); LYMPHOCYTES # 2.24 10^3/uL1 (1.0-4.8); MEAN CORP HGB 31.7 pg (26-34); MEAN CORP VOLUME 93.2 fL (78-100); MONOCYTES # 0.8 10^3/uL (0.3-0.8); MONOCYTES % 11.5 % (5.0-12.0); NEUTROPHIL # 3.4 10^3/uL (1.8-7.7); NEUTROPHILS % 50.9 % (41.0-85.0); PLATELET COUNT 292 10^3/uL (150-400); RED BLOOD CELL 4.26 10^6/uL (4.00-5.20); RED CELL DISTRIBUTION WIDTH 13.3 % (11.5-14.5); WHITE BLOOD CELL 6.6 10^3/uL (4.5-11.0)
[2023-03-05 12:07] LABS: ANION GAP 16.2; CALCIUM 8.9 mg/dL (8.4-10.5); CARBON DIOXIDE 26.7 mmol/L (20.0-32); CREATININE SERUM 0.77 mg/dL (0.59-1.40); POTASSIUM 3.9 mmol/L (3.6-5.2)
[2023-03-05 12:45] VITALS: BP 112/64; PULSE 68; RESP 16; TEMP 97.7; O2SAT 100
[2023-03-05] MEDS ORDERED: DEMEROL ONE (12:51)
[2023-03-05] MEDS ORDERED: ZOFRAN ODT ONE (12:51)
[2023-03-05] MEDS: DEMEROL IM STA (12:55)
[2023-03-05] MEDS: ZOFRAN ODT SL STA (12:55)
== END 2023-03-05 12:57 | disposition home or self-care (01) ==
LOC: ER 11:19
DX: G43.911 Migraine, unspecified, intractable, with status migrainosus (principal); I10 Essential (primary) hypertension; Z90.49 Acquired absence of other specified parts of digestive tract; Z90.710 Acquired absence of both cervix and uterus; Z88.2 Allergy status to sulfonamides; Z88.5 Allergy status to narcotic agent
CPT/HCPCS: 99284; 70450; 96372; 85025; 36415; 80048; 85651; J2175; J1885

== ENCOUNTER → 2023-03-15 | Outpatient (CLI) | payer MEDICARE | END | disposition home or self-care (01) | LOC: RAD 10:20 | PROVIDERS: ATTEND Internal Medicine | DX: M19.042 Primary osteoarthritis, left hand (principal); M79.642 Pain in left hand | CPT/HCPCS: 73110-LT; 73130-LT ==

== ENCOUNTER → 2023-04-17 | Outpatient (CLI) | payer MEDICARE ==
[~2023-04-17] MED LIST changes: -OXYB5TAB10 PO; +OXYB5TAB11 PO
== END | disposition home or self-care (01) ==
LOC: RAD 09:36
PROVIDERS: ATTEND Internal Medicine
DX: R90.82 White matter disease, unspecified (principal); R51.9 Headache, unspecified
CPT/HCPCS: 70551

== ENCOUNTER 2023-07-04 11:16 | Emergency (ER) | payer MEDICARE ==
[~2023-07-04] VITALS: Ht 162.6 cm; Wt 49.0 kg
[2023-07-04 11:16] VITALS: BP 115/55; PULSE 59; RESP 18; TEMP 98.2; O2SAT 98
[2023-07-04] MEDS ORDERED: ASPIRIN PO STA (11:35)
[2023-07-04] MEDS ORDERED: ASPIRIN ONE (11:39)
[2023-07-04] MEDS: NITROSTAT SL PRN ×2 (11:40→11:47)
[2023-07-04] MEDS ORDERED: NITROSTAT SL ONE (11:40)
[2023-07-04 11:50] LABS: +ADD MANUAL DIFF(NO CHRG) NO; BASOPHIL # 0.1 10^3/uL (0.0-0.1); BASOPHIL % 0.7 % (0.0-0.2); EOSINOPHIL # 0.1 10^3/uL (0.0-0.2); EOSINOPHIL % 1.5 % (0.0-5.0); HEMATOCRIT(ML) 36.2 % (36.0-46.0); HEMOGLOBIN 11.9 g/dL (12.0-15.0); LYMPHOCYTES # 2.11 10^3/uL1 (1.0-4.8); LYMPHOCYTES % 25.9 % (24.0-44.0); MEAN CORP HGB 31.2 pg (26-34); MEAN CORP HGB CONCENTRATION 32.9 g/dL (33-36.5); MEAN CORP VOLUME 94.8 fL (78-100); MONOCYTES # 0.8 10^3/uL (0.3-0.8); MONOCYTES % 9.2 % (5.0-12.0); NEUTROPHIL # 5.1 10^3/uL (1.8-7.7); NEUTROPHILS % 62.6 % (41.0-85.0); PLATELET COUNT 419 10^3/uL (150-400); RED BLOOD CELL 3.82 10^6/uL (4.00-5.20); RED CELL DISTRIBUTION WIDTH 15.2 % (11.5-14.5); WHITE BLOOD CELL 8.1 10^3/uL (4.5-11.0)
[2023-07-04 12:10] VITALS: BP 104/57; PULSE 59; RESP 16; O2SAT 99
[2023-07-04 12:15] LABS: INR 1.1
[2023-07-04 12:16] LABS: ALANINE AMINOTRANSFERASE(ML) 22 U/L (12-78); ALBUMIN(ML) 2.9 g/dL (3.4-5.0); ALBUMIN/GLOBULIN RATIO 0.674; ALKALINE PHOSPHATASE 138 U/L (50-136); ANION GAP 14.3; ASPARTATE AMINO TRANSFERASE 25 U/L (0-35); CALCIUM 9.4 mg/dL (8.4-10.5); CARBON DIOXIDE 25.5 mmol/L (20.0-32); CREATINE KINASE 47 U/L (26-192); CREATININE SERUM 1.01 mg/dL (0.59-1.40); EST GFR, NON-AA 54.8 (>/=60); GLUCOSE 94 mg/dL (74-106); POTASSIUM 3.8 mmol/L (3.6-5.2); SODIUM 138 mmol/L (132-145)
[2023-07-04 12:17] LABS: CREATINE KINASE MB < 0.5 ng/mL (0.5-3.6); TROPONIN I HIGH SENSITIVITY < 4 ng/L (0-50)
[2023-07-04 13:07] VITALS: BP 115/63; PULSE 57; RESP 16; O2SAT 96
[2023-07-04 14:31] VITALS: BP 142/102; PULSE 58; RESP 18; O2SAT 99
[2023-07-04 14:40] VITALS: BP 157/63; PULSE 63; RESP 18; O2SAT 96
== END 2023-07-04 14:42 | disposition home or self-care (01) ==
LOC: ER 11:16
DX: R07.9 Chest pain, unspecified (principal); I10 Essential (primary) hypertension; I48.91 Unspecified atrial fibrillation; Z87.11 Personal history of peptic ulcer disease; Z90.49 Acquired absence of other specified parts of digestive tract; Z90.710 Acquired absence of both cervix and uterus; Z88.2 Allergy status to sulfonamides; Z88.5 Allergy status to narcotic agent; Z79.01 Long term (current) use of anticoagulants
CPT/HCPCS: 99284; 71275; 71045; 80053; 85025; 36415; 85379; 84484 ×2; 82553; 83880; 82550; 85610; 85730; 93005; J3490; Q9965

== ENCOUNTER → 2023-08-02 | Outpatient (CLI) | payer MEDICARE ==
[~2023-08-02] MED LIST changes: +LEXISCAN IV ONE
== END | disposition home or self-care (01) ==
LOC: RAD 08:33
PROVIDERS: ATTEND Internal Medicine Interventional Cardiology
DX: I48.0 Paroxysmal atrial fibrillation (principal); R07.9 Chest pain, unspecified
CPT/HCPCS: 78452; 93017; A9500

== ENCOUNTER 2023-10-24 11:24 | Emergency (ER) | payer MEDICARE ==
[~2023-10-24] VITALS: Ht 162.6 cm; Wt 48.1 kg
[~2023-10-24 11:24] MED LIST changes: -LEXISCAN IV ONE; -OXYB5TAB11 PO; +OXYB5TAB13 PO
[2023-10-24 11:39] VITALS: BP 124/63; PULSE 58; RESP 18; TEMP 97.6; O2SAT 100
[2023-10-24 12:10] VITALS: BP 118/63; PULSE 50; RESP 18; O2SAT 98
[2023-10-24] MEDS ORDERED: CLIN150C17 PO (12:10)
== END 2023-10-24 12:13 | disposition home or self-care (01) ==
LOC: ER 11:24
DX: S60.221A Contusion of right hand, initial encounter (principal); I11.0 Hypertensive heart disease with heart failure; I50.9 Heart failure, unspecified; I48.91 Unspecified atrial fibrillation; Z90.49 Acquired absence of other specified parts of digestive tract; Z90.710 Acquired absence of both cervix and uterus; Z88.2 Allergy status to sulfonamides; Z88.5 Allergy status to narcotic agent; W19.XXXA Unspecified fall, initial encounter; Y93.89 Activity, other specified; Y92.89 Other specified places as the place of occurrence of the external cause; Y99.8 Other external cause status
CPT/HCPCS: 99283; 73130-RT

== ENCOUNTER 2024-01-14 11:18 | Emergency (ER) | payer MEDICARE ==
[2024-01-14] VITALS (7 sets, daily range): BP systolic 84–152; BP diastolic 47–76; PULSE 68–75; RESP 22; TEMP 98.1; O2SAT 90–93
[~2024-01-14] VITALS: Ht 162.6 cm; Wt 44.5 kg
[~2024-01-14 11:18] MED LIST changes: +CLIN150C17 PO; +ONDA-228 PO; -ONDA8TAB16 PO
[2024-01-14 12:41] LABS: BASOPHIL # 0.1 10^3/uL (0.0-0.1); BASOPHIL % 0.6 % (0.0-0.2); EOSINOPHIL # 0.1 10^3/uL (0.0-0.2); EOSINOPHIL % 1.3 % (0.0-5.0); HEMATOCRIT(ML) 29.1 % (36.0-46.0); HEMOGLOBIN 9.8 g/dL (12.0-15.0); LYMPHOCYTES # 1.46 10^3/uL1 (1.0-4.8); LYMPHOCYTES % 15.1 % (24.0-44.0); MEAN CORP HGB 31.8 pg (26-34); MEAN CORP HGB CONCENTRATION 33.7 g/dL (33-36.5); MEAN CORP VOLUME 94.5 fL (78-100); MONOCYTES # 1.3 10^3/uL (0.3-0.8); MONOCYTES % 13.9 % (5.0-12.0); NEUTROPHIL # 6.7 10^3/uL (1.8-7.7); PLATELET COUNT 322 10^3/uL (150-400); RED BLOOD CELL 3.08 10^6/uL (4.00-5.20); RED CELL DISTRIBUTION WIDTH 13.1 % (11.5-14.5); WHITE BLOOD CELL 9.7 10^3/uL (4.5-11.0)
[2024-01-14 12:42] LABS: +ADD MANUAL DIFF(NO CHRG) NO
[2024-01-14] MEDS ORDERED: MORPHINE SULFATE ONE (12:50)
[2024-01-14] MEDS ORDERED: ZOFRAN ONE (12:50)
[2024-01-14] MEDS: ZOFRAN IV STA (12:55)
[2024-01-14] MEDS: MORPHINE SULFATE IV STA (12:56)
[2024-01-14 13:02] LABS: INR 1.5; PROTHROMBIN PROTIME 15.5 SEC (9.7-11.6)
[2024-01-14] MEDS ORDERED: NS 1000ML 1,000 ML ONE ×2 (13:07→14:18)
[2024-01-14] MEDS ORDERED: ASPIRIN ONE (13:07)
[2024-01-14] MEDS: NS 1000ML 1,000 ML IV STA ×2 (13:11→14:21)
[2024-01-14] MEDS: ASPIRIN PO STA (13:11)
[2024-01-14 13:24] LABS: ALBUMIN(ML) 2.8 g/dL (3.4-5.0); ALBUMIN/GLOBULIN RATIO 0.875; ANION GAP 14.9; BUN/CREATININE RATIO 15.49 (10.0-20.0); CALCIUM 8.6 mg/dL (8.4-10.5); CARBON DIOXIDE 19.6 mmol/L (20.0-32); CREATINE KINASE MB 1.4 ng/mL (0.5-3.6); CREATININE SERUM 0.71 mg/dL (0.59-1.40); EST GFR, NON-AA 82.1 (>/=60); POTASSIUM 3.5 mmol/L (3.6-5.2)
[2024-01-14] MEDS ORDERED: ROCEPHIN ONE (14:06)
[2024-01-14] MEDS ORDERED: NS 100ML 100 ML IV ONE (14:06)
[2024-01-14] MEDS: ROCEPHIN 1,000 MG in NS 100ML 100 ML IV STA (14:26)
[2024-01-14 14:36] LABS: BILIRUBIN,URINE NEGATIVE (NEGATIVE); LEUKOCYTE ESTERASE ,URINE TRACE (NEGATIVE); NITRATE,URINE POSITIVE (NEGATIVE); UROBILINOGEN,URINE 0.2 E.U./dL (0.2)
[2024-01-14 14:40] LABS: APPEARANCE,URINE CLOUDY; UA COLOR YELLOW
[2024-01-14] MEDS ORDERED: LEVOPHED IV ONE (15:19)
[2024-01-14] MEDS ORDERED: [UNRECOGNIZED DRUG - OTHER] IV ONE (15:19)
[2024-01-14] MEDS: LEVOPHED IV STA (15:54)
[2024-01-14] MEDS: [UNRECOGNIZED DRUG - OTHER] IV STA (15:54)
== END 2024-01-14 16:35 | disposition short-term general hospital (02) ==
LOC: ER 11:18
DX: N39.0 Urinary tract infection, site not specified (principal); R07.9 Chest pain, unspecified; I95.9 Hypotension, unspecified; I11.0 Hypertensive heart disease with heart failure; I50.9 Heart failure, unspecified; E07.9 Disorder of thyroid, unspecified; E78.00 Pure hypercholesterolemia, unspecified; K21.9 Gastro-esophageal reflux disease without esophagitis; Z90.49 Acquired absence of other specified parts of digestive tract; Z90.710 Acquired absence of both cervix and uterus; Z90.89 Acquired absence of other organs; Z95.0 Presence of cardiac pacemaker; Z88.2 Allergy status to sulfonamides; Z88.5 Allergy status to narcotic agent
CPT/HCPCS: 99291; 96365; 96375; 96367; 96361; 87086; 71045; 80053; 85025; 36415; 85379; 84484; 87040 ×2; 83605; 84145; 82553; 81001; 83880; 82550; 85610; 85730; 93005; J2270; J7030 ×2; J0696 ×2; J2405; J8499; 87077; 87186

== ENCOUNTER 2025-04-21 12:08 | Observation (INO) | payer MEDICARE ==
[~2025-04-21 12:08] MED LIST changes: -LEVO50CA4 PO; +LEVO50CA5 PO; -ZOLP10TA PO; +[UNRECOGNIZED DRUG - CODE] PO
[2025-04-22] MEDS ORDERED: HYDR25CA93 PO (10:06)
[2025-04-22] MEDS ORDERED: AMIO200T60 PO (10:06)
[2025-04-22] MEDS ORDERED: LEVO88TA5 PO (10:06)
[2025-04-22] MEDS ORDERED: [UNRECOGNIZED DRUG - CODE] PO (10:06)
[2025-04-22] MEDS ORDERED: APIX5TAB PO (10:06)
[2025-04-22] MEDS ORDERED: SACU1TAB PO (10:06)
[2025-04-22] MEDS ORDERED: ROSU40TA PO (10:06)
== END 2025-04-23 14:08 | disposition admitted as inpatient to this hospital (09) ==
LOC: ER 12:08 → OBS 14:08
PROVIDERS: ADMIT Internal Medicine; ATTEND Internal Medicine
DX: N39.0 Urinary tract infection, site not specified (principal); I95.9 Hypotension, unspecified; R53.1 Weakness; G93.41 Metabolic encephalopathy; J96.00 Acute respiratory failure, unspecified whether with hypoxia or hypercapnia; M62.82 Rhabdomyolysis; E86.1 Hypovolemia; E03.9 Hypothyroidism, unspecified; I11.0 Hypertensive heart disease with heart failure; I50.9 Heart failure, unspecified; E78.00 Pure hypercholesterolemia, unspecified; K59.00 Constipation, unspecified; K21.9 Gastro-esophageal reflux disease without esophagitis; Z79.899 Other long term (current) drug therapy; Z98.890 Other specified postprocedural states
CPT/HCPCS: 96365; 96366 ×2; 96361 ×3; 96368; 99284; 87086; 71045; 70450; 73610; 80053; 85025; 82948; 36415; 84484; 80307; 82553; 82077; 81001; 83880; 82607; 82550; 87186; 84443; 82746; 84550; 87077; 93005; 97161; 96367; 97116; 97110; G0378 ×4; J7030 ×3; J3490 ×5; J0696; J0692 ×2; J8499 ×2; 96360; 99285

== ENCOUNTER 2025-04-21 12:08 | Inpatient (IN) | payer MEDICARE ==
[2025-04-21] VITALS (19 sets, daily range): BP systolic 82–125; BP diastolic 43–75; PULSE 60–82; RESP 14–65; TEMP 97.7–98.5; O2SAT 84–100
[~2025-04-21] VITALS: Ht 162.6 cm; Wt 48.2 kg
[2025-04-21] MEDS ORDERED: NS 1000ML 1,000 ML ONE (12:49)
[2025-04-21] MEDS: NS 1000ML 1,000 ML IV ONE (13:02)
[2025-04-21 13:10] LABS: BASOPHIL # 0.1 10^3/uL (0.0-0.1); BASOPHIL % 0.9 % (0.1-1.2); EOSINOPHIL # 0.1 10^3/uL (0.0-0.2); EOSINOPHIL % 0.9 % (0.0-5.0); HEMATOCRIT(ML) 39.3 % (36.0-46.0); IG % 0.00 % (0.00-0.50); LYMPHOCYTES # 1.97 10^3/uL1 (1.0-4.8); LYMPHOCYTES % 28.8 % (24.0-44.0); MEAN CORP HGB 31.5 pg (26-34); MEAN CORP HGB CONCENTRATION 32.3 g/dL (33-36.5); MEAN CORP VOLUME 97.5 fL (78-100); MONOCYTES # 1.5 10^3/uL (0.3-0.8); MONOCYTES % 21.6 % (5.0-12.0); NEUTROPHIL # 3.3 10^3/uL (1.8-7.7); NEUTROPHILS % 47.8 % (41.0-85.0); RED BLOOD CELL 4.03 10^6/uL (4.00-5.20); RED CELL DISTRIBUTION WIDTH 15.7 % (11.5-14.5); WHITE BLOOD CELL 6.9 10^3/uL (4.5-11.0)
[2025-04-21 13:30] LABS: LEUKOCYTE ESTERASE ,URINE 2+ (NEGATIVE); NITRATE,URINE NEGATIVE (NEGATIVE)
[2025-04-21 13:32] LABS: APPEARANCE,URINE CLOUDY; UA COLOR YELLOW
[2025-04-21 13:48] LABS: ALANINE AMINOTRANSFERASE(ML) 42.0 U/L (12-78); ALBUMIN(ML) 3.5 g/dL (3.4-5.0); CREATINE KINASE MB 1.4 ng/mL (0.5-3.6); CREATININE SERUM 0.98 mg/dL (0.59-1.40); EST GFR, NON-AA 56.4 (>/=60); TROPONIN I HIGH SENSITIVITY 5.0 ng/L (0-50)
[2025-04-21] MEDS ORDERED: ROCEPHIN 1 GM-D5W BAG 50 ML IV ONE (14:18)
[2025-04-21] MEDS: ROCEPHIN 1,000 MG in NS 100ML 100 ML IV STA (14:21)
[2025-04-21] MEDS: ROCEPHIN 1 GM-D5W BAG 50 ML IV STA (14:25)
[2025-04-21] MEDS ORDERED: MAXIPIME 1 GM in NS 100ML 100 ML IV SCH (15:30)
[2025-04-21] MEDS ORDERED: NS 1000ML 1,000 ML IV SCH (15:30)
[2025-04-21] MEDS ORDERED: PEPCID IV SCH (15:30)
[2025-04-21 16:02] LABS: UAMPH METHAMP(SCRN) NEGATIVE (co1000ng/mL); UR METHADONE SCRN NEGATIVE (c/o300ng/mL); UR OPIATE SCRN NEGATIVE (c/o300ng/mL); UR PHENCYCLIDINE (PCP) SCRN NEGATIVE (c/o 25ng/mL); UR TETRAHYDROCANNABINOL SCRN NEGATIVE (c/o 50ng/mL)
[2025-04-21 16:05] LABS: UR MDMA (ECSTASY) SCRN PRESUMPTIVE POSITIVE (c/o300ng/mL)
[2025-04-21] MEDS ORDERED: NS 100ML 100 ML IV ONE (17:38)
[2025-04-21] MEDS: NS 1000ML 1,000 ML IV SCH (17:41)
[2025-04-21] MEDS: MAXIPIME 1 GM in NS 100ML 100 ML IV SCH (17:41)
[2025-04-21] MEDS: PEPCID IV SCH (20:55)
[2025-04-21] MEDS: CARAFATE PO SCH (20:56)
[2025-04-21] MEDS: DITROPAN PO SCH (20:56)
[2025-04-21] MEDS: PROTONIX PO SCH (20:56)
[2025-04-21] MEDS ORDERED: AMBIEN ONE (21:48)
[2025-04-21] MEDS: AMBIEN PO SCH (21:53)
[2025-04-22 00:30] VITALS: BP 85/51; PULSE 64; RESP 18; TEMP 98.2; O2SAT 93
[2025-04-22] MEDS ORDERED: NS 100ML 100 ML IV ONE ×3 (01:43→20:54)
[2025-04-22 04:16] VITALS: BP 103/58; PULSE 62; RESP 18; TEMP 98.1; O2SAT 96
[2025-04-22] MEDS: SYNTHROID PO SCH (05:43)
[2025-04-22] MEDS: ULTRAM PO PRN ×2 (05:54→11:53)
[2025-04-22 07:18] VITALS: BP 97/55; PULSE 61; RESP 18; TEMP 98.4; O2SAT 95
[2025-04-22] MEDS: PLAVIX PO SCH (08:53)
[2025-04-22] MEDS: FOLIC ACID PO SCH (08:53)
[2025-04-22] MEDS: WELLBUTRIN XL PO SCH (08:53)
[2025-04-22] MEDS ORDERED: HYDR25CA93 PO (10:06)
[2025-04-22] MEDS ORDERED: ROSU40TA PO (10:06)
[2025-04-22] MEDS ORDERED: LEVO88TA5 PO (10:06)
[2025-04-22] MEDS ORDERED: [UNRECOGNIZED DRUG - CODE] PO (10:06)
[2025-04-22] MEDS ORDERED: SACU1TAB PO (10:06)
[2025-04-22] MEDS ORDERED: AMIO200T60 PO (10:06)
[2025-04-22] MEDS ORDERED: APIX5TAB PO (10:06)
[2025-04-22 10:50] VITALS: BP 93/56; PULSE 68; RESP 18; TEMP 98.6; O2SAT 98
[2025-04-22 16:13] VITALS: BP 107/62; PULSE 69; RESP 18; TEMP 98.7; O2SAT 98
[2025-04-22 20:07] VITALS: BP 95/51; PULSE 69; RESP 18; TEMP 98.1; O2SAT 93
[2025-04-22] MEDS: MAXIPIME 1 GM in NS 100ML 100 ML IV SCH (20:57)
[2025-04-22] MEDS ORDERED: AMBIEN PO SCH ×2 (21:00)
[2025-04-23] VITALS (12 sets, daily range): BP systolic 103–130; BP diastolic 56–83; PULSE 64–89; RESP 18–32; TEMP 97.5–99.4; O2SAT 79–98
[2025-04-23] MEDS: VANCOMYCIN 1 GRAM/200 ML BAG 200 ML IV SCH (09:01)
[2025-04-23] MEDS: ZOFRAN ODT SL PRN (20:10)
[2025-04-23] MEDS: LASIX IV STA (22:27)
[2025-04-24] VITALS (56 sets, daily range): BP systolic 73–136; BP diastolic 41–82; PULSE 69–90; RESP 16–68; TEMP 97.9–99.6; O2SAT 77–100
[2025-04-24] MEDS ORDERED: WATER 20 ML ONE (00:08)
[2025-04-24] MEDS: AMOXIL PO SCH (10:08)
[2025-04-24] MEDS: COLACE PO SCH (12:56)
[2025-04-24] MEDS: TYLENOL PO SCH (12:56)
[2025-04-24] MEDS: LASIX IV SCH (15:30)
[2025-04-24] MEDS ORDERED: REMERON ONE (19:37)
[2025-04-24] MEDS ORDERED: MELATONIN ONE (19:40)
[2025-04-24] MEDS: MELATONIN PO SCH (19:56)
[2025-04-24 19:58] LABS: BASOPHIL # 0.0 10^3/uL (0.0-0.1); BASOPHIL % 0.4 % (0.1-1.2); EOSINOPHIL # 0.1 10^3/uL (0.0-0.2); EOSINOPHIL % 0.8 % (0.0-5.0); HEMATOCRIT(ML) 34.6 % (36.0-46.0); IG % 0.30 % (0.00-0.50); LYMPHOCYTES # 1.48 10^3/uL1 (1.0-4.8); LYMPHOCYTES % 13.0 % (24.0-44.0); MEAN CORP HGB 31.2 pg (26-34); MEAN CORP HGB CONCENTRATION 33.2 g/dL (33-36.5); MEAN CORP VOLUME 93.8 fL (78-100); MONOCYTES # 1.4 10^3/uL (0.3-0.8); MONOCYTES % 11.9 % (5.0-12.0); NEUTROPHIL # 8.4 10^3/uL (1.8-7.7); NEUTROPHILS % 73.6 % (41.0-85.0); RED BLOOD CELL 3.69 10^6/uL (4.00-5.20); RED CELL DISTRIBUTION WIDTH 14.9 % (11.5-14.5); WHITE BLOOD CELL 11.4 10^3/uL (4.5-11.0)
[2025-04-24] MEDS: REMERON PO SCH (19:58)
[2025-04-24 20:22] LABS: ALANINE AMINOTRANSFERASE(ML) 113.0 U/L (12-78); ALBUMIN(ML) 2.9 g/dL (3.4-5.0); CREATININE SERUM 0.73 mg/dL (0.59-1.40); EST GFR, NON-AA 79.3 (>/=60)
[2025-04-24] MEDS: PRECEDEX IV SCH (22:05)
[2025-04-24] MEDS: KLOR-CON PO SCH (23:45)
[2025-04-25] VITALS (165 sets, daily range): BP systolic 67–138; BP diastolic 35–89; PULSE 66–108; RESP 12–47; TEMP 97–98.3; O2SAT 75–98
[2025-04-25 04:54] LABS: BASOPHIL # 0.1 10^3/uL (0.0-0.1); BASOPHIL % 0.6 % (0.1-1.2); EOSINOPHIL # 0.2 10^3/uL (0.0-0.2); EOSINOPHIL % 1.7 % (0.0-5.0); HEMATOCRIT(ML) 32.4 % (36.0-46.0); IG % 0.20 % (0.00-0.50); LYMPHOCYTES # 1.15 10^3/uL1 (1.0-4.8); LYMPHOCYTES % 10.9 % (24.0-44.0); MEAN CORP HGB 31.2 pg (26-34); MEAN CORP HGB CONCENTRATION 33.3 g/dL (33-36.5); MEAN CORP VOLUME 93.6 fL (78-100); MONOCYTES # 1.6 10^3/uL (0.3-0.8); MONOCYTES % 14.7 % (5.0-12.0); NEUTROPHIL # 7.6 10^3/uL (1.8-7.7); NEUTROPHILS % 71.9 % (41.0-85.0); RED BLOOD CELL 3.46 10^6/uL (4.00-5.20); RED CELL DISTRIBUTION WIDTH 14.8 % (11.5-14.5); WHITE BLOOD CELL 10.6 10^3/uL (4.5-11.0)
[2025-04-25 05:05] LABS: CREATININE SERUM 0.63 mg/dL (0.59-1.40); EST GFR, NON-AA 94.0 (>/=60)
[2025-04-25] MEDS: POTASSIUM CHLORIDE PO ONE (10:16)
[2025-04-25] MEDS: KLOR-CON PO ONE (10:20)
[2025-04-25 16:20] LABS: CREATININE SERUM 0.63 mg/dL (0.59-1.40); EST GFR, NON-AA 94.0 (>/=60)
[2025-04-25 23:43] LABS: CREATININE SERUM 0.62 mg/dL (0.59-1.40); EST GFR, NON-AA 95.7 (>/=60)
[2025-04-26] VITALS (131 sets, daily range): BP systolic 75–141; BP diastolic 26–85; PULSE 63–112; RESP 4–120; TEMP 97–98.8; O2SAT 87–100
[2025-04-26] MEDS ORDERED: MAGNESIUM-D5W 1 GM/100 ML SOLN 100 ML IV ONE (00:39)
[2025-04-26] MEDS: KLOR-CON PO ONE (00:44)
[2025-04-26] MEDS: MAGNESIUM-D5W 1 GM/100 ML SOLN 100 ML IV ONE (00:48)
[2025-04-26 09:22] LABS: CREATININE SERUM 0.6 mg/dL (0.59-1.40); EST GFR, NON-AA 99.4 (>/=60)
[2025-04-26] MEDS: POTASSIUM CHLORIDE PO ONE (09:29)
[2025-04-26] MEDS ORDERED: NS 100ML 100 ML IV ONE (10:29)
[2025-04-26] MEDS ORDERED: MORPHINE SULFATE ONE (10:29)
[2025-04-26] MEDS ORDERED: NS 250ML 250 ML ONE (10:37)
[2025-04-26] MEDS: PROAMATINE PO SCH (16:53)
[2025-04-26] MEDS ORDERED: LACTATED RINGERS 1,000 ML ONE (18:42)
[2025-04-26] MEDS: AMBIEN PO PRN (20:15)
[2025-04-27] VITALS (93 sets, daily range): BP systolic 73–141; BP diastolic 32–87; PULSE 62–133; RESP 9–122; TEMP 98.4–99; O2SAT 85–100
[2025-04-27 09:27] LABS: HEMATOCRIT(ML) 36.5 % (36.0-46.0); MEAN CORP HGB 31.2 pg (26-34); MEAN CORP HGB CONCENTRATION 32.6 g/dL (33-36.5); MEAN CORP VOLUME 95.5 fL (78-100); RED BLOOD CELL 3.82 10^6/uL (4.00-5.20); RED CELL DISTRIBUTION WIDTH 15.4 % (11.5-14.5); WHITE BLOOD CELL 9.0 10^3/uL (4.5-11.0)
[2025-04-27 09:39] LABS: CREATININE SERUM 0.67 mg/dL (0.59-1.40); EST GFR, NON-AA 87.5 (>/=60)
[2025-04-27] MEDS: LASIX PO SCH (11:22)
[2025-04-27] MEDS: PROAMATINE PO SCH (14:51)
[2025-04-27] MEDS ORDERED: ULTRAM ONE (15:36)
[2025-04-27] MEDS: ULTRAM PO PRN (15:45)
[2025-04-27] MEDS ORDERED: [UNRECOGNIZED DRUG - OTHER] ONE (19:43)
[2025-04-27] MEDS ORDERED: MIRALAX ONE (19:44)
[2025-04-27] MEDS: [UNRECOGNIZED DRUG - OTHER] PO SCH (20:10)
[2025-04-27] MEDS: MIRALAX PO SCH (20:18)
[2025-04-28] VITALS (82 sets, daily range): BP systolic 0–151; BP diastolic 0–105; PULSE 62–91; RESP 13–86; TEMP 98.2–99.1; O2SAT 87–100
[2025-04-28 08:55] LABS: CREATININE SERUM 0.69 mg/dL (0.59-1.40); EST GFR, NON-AA 84.6 (>/=60)
[2025-04-29] VITALS (55 sets, daily range): BP systolic 80–143; BP diastolic 34–119; PULSE 72–119; RESP 18–51; TEMP 98.1–98.7; O2SAT 89–98
[2025-04-29] MEDS ORDERED: FOLIC ACID ONE (11:44)
[2025-04-29] MEDS ORDERED: MIDO5TAB4 PO (15:02)
[2025-04-29] MEDS ORDERED: LEVO100T PO (15:02)
== END 2025-04-29 15:57 | disposition home or self-care (01) | DRG 689 ==
LOC: ER 12:08 → ICU 14:08 → INTOOBSV 14:08 → OBS 18:00 → MS 19:00 → OBSVTOIN 04-23 14:08 → MS 04-23 14:09 → ICU 04-24 16:54
PROVIDERS: ADMIT Internal Medicine; ATTEND Internal Medicine
DX: N39.0 Urinary tract infection, site not specified (principal); G93.41 Metabolic encephalopathy; J96.00 Acute respiratory failure, unspecified whether with hypoxia or hypercapnia; M62.82 Rhabdomyolysis; I11.0 Hypertensive heart disease with heart failure; I95.9 Hypotension, unspecified; E86.1 Hypovolemia; E03.9 Hypothyroidism, unspecified; I49.5 Sick sinus syndrome; I48.91 Unspecified atrial fibrillation; I50.9 Heart failure, unspecified; E78.00 Pure hypercholesterolemia, unspecified; K59.00 Constipation, unspecified; R29.6 Repeated falls; K21.9 Gastro-esophageal reflux disease without esophagitis; S96.811A Strain of other specified muscles and tendons at ankle and foot level, right foot, initial encounter; W18.39XA Other fall on same level, initial encounter; Y93.89 Activity, other specified; Y92.89 Other specified places as the place of occurrence of the external cause; Y99.8 Other external cause status; Z82.49 Family history of ischemic heart disease and other diseases of the circulatory system; Z82.5 Family history of asthma and other chronic lower respiratory diseases; Z88.2 Allergy status to sulfonamides; Z90.710 Acquired absence of both cervix and uterus; Z91.81 History of falling; Z95.0 Presence of cardiac pacemaker; Z98.82 Breast implant status; Z90.49 Acquired absence of other specified parts of digestive tract
CPT/HCPCS: 36415; 36569; 70450; 71045; 71275; 78452; 80048; 80053; 80202; 80307; 80346; 80359; 81001; 82077; 82533; 82550; 82553; 82607; 82746; 82948; 83735; 83880; 84439; 84443; 84484; 84550; 85025; 85027; 87077; 87086; 87186; 93005; 93017; 93306; 94660; 96360; 97161; 99285; A4216; A6258; A9500; G0378; J0692; J0696; J1250; J1938; J2785; J3475; J3490; J7030; J7050; J7120; J8499; Q9967; 73610-RT; 97110-GP; 97116-GP; J0280; Q9965